=== PATIENT | female | born 1940 | race Caucasian/White ===

== ENCOUNTER 2018-06-08 17:05 | Inpatient (IN) | payer MEDICARE, OTHER ==
--- NOTE | 2018-06-08 19:14 | ED Physician Chart ---
ED Chief Complaint/HPI - Patient Information Date Seen:: 06/08/18 Time Seen:: 19:14 Chief Complaint:: Increased agitation History of Present Illness:: 78 yo female was brought from SNF to ER for evaluation of increased agitation for 2 days. Patient became extremely agitated and aggressive at ER. Allergies:: Allergies Allergy/AdvReac Type Severity Reaction Status Date / Time No Known Allergies Allergy Verified 06/08/18 17:28 Vitals:: Vital Signs - 8 hr 06/08/18 17:30 Temp 98.2 F HR 82 RR 16 BP 94/60 O2 Sat % 100 ED Review of Systems - Review of Systems General/Constitutional: No fever Skin: No skin lesions Head: No headache Eyes: No pain ENT: No nasal drainage Neck: No neck pain Cardio Vascular: No chest pain Pulmonary: No SOB GI: No nausea, No vomiting Musculoskeletal: No bone or joint pain Psychiatric: Prior psych history Neurological: No focal symptoms ED Past Medical History - Past Medical History Past Medical History: Dementia, Other (fibromyalgia, non-Hodgkin lymphoma, orthostatic hypotension, UTI) Social History: Non Smoker, No Alcohol, No Drug Use Psychiatricy History: Depression ED Physical Exam - Physical Examination General/Constitutional: Awake, Alert Head: Atraumatic Eyes: PERRL Skin: No skin lesions ENMT: Nasal exam nl Neck: No nuchal rigidity Respiratory: No Wheeze/Rhonchi/Rales Cardio Vascular: RRR, No murmur, gallop, rubs, NL S1 S2 GI: No tenderness/rebounding/guarding Extremities: normal strength in all extremities Neuro/Psych: No focal deficits ED Labs/Radiology/EKG Results - Lab Results Results: Laboratory Last Values WBC 10.3 Th/cmm (4.8-10.8) 06/08/18 19:35 RBC 3.76 Mil/cmm (3.80-5.20) L 06/08/18 19:35 Hgb 12.0 gm/dL (12-16) 06/08/18 19:35 Hct 35.4 % (41.0-60) L 06/08/18 19:35 MCV 94.1 fl (81-100) 06/08/18 19:35 MCH 31.9 pg (27.0-31.0) H 06/08/18 19:35 MCHC Differential 34.0 pg (28.0-36.0) 06/08/18 19:35 RDW 12.6 % (11.5-20.0) 06/08/18 19:35 Plt Count 140 Th/cmm (150-400) L 06/08/18 19:35 MPV 8.9 fl 06/08/18 19:35 Neutrophils % 41.4 % (40.0-80.0) 06/08/18 19:35 Lymphocytes % 50.5 % (20.0-50.0) H 06/08/18 19:35 Monocytes % 6.6 % (2.0-10.0) 06/08/18 19:35 Eosinophils % 0.8 % (0.0-5.0) 06/08/18 19:35 Basophils % 0.7 % (0.0-2.0) 06/08/18 19:35 Sodium 140 mEq/L (136-145) 06/08/18 19:35 Potassium 4.5 mEq/L (3.5-5.1) 06/08/18 19:35 Chloride 111 mEq/L (98-107) H 06/08/18 19:35 Carbon Dioxide 23.0 mEq/L (21.0-31.0) 06/08/18 19:35 Anion Gap 10.5 (7.0-16.0) 06/08/18 19:35 BUN 33 mg/dL (7-25) H 06/08/18 19:35 Creatinine 0.9 mg/dL (0.6-1.2) 06/08/18 19:35 Est GFR ( Amer) TNP 06/08/18 19:35 Est GFR (Non-Af Amer) TNP 06/08/18 19:35 BUN/Creatinine Ratio 36.7 06/08/18 19:35 Glucose 89 mg/dL (70-105) 06/08/18 19:35 Calcium 9.3 mg/dL (8.6-10.3) 06/08/18 19:35 Total Bilirubin 0.3 mg/dL (0.3-1.0) 06/08/18 19:35 AST 13 U/L (13-39) 06/08/18 19:35 ALT 11 U/L (7-52) 06/08/18 19:35 Alkaline Phosphatase 62 U/L (34-104) 06/08/18 19:35 Troponin I 0.01 ng/mL (0.01-0.05) 06/08/18 19:35 B-Natriuretic Peptide 82.1 pg/mL (5.0-100.0) 06/08/18 19:35 Total Protein 6.8 gm/dL (6.0-8.3) 06/08/18 19:35 Albumin 3.6 gm/dL (3.7-5.3) L 06/08/18 19:35 Globulin 3.2 gm/dL 06/08/18 19:35 Albumin/Globulin Ratio 1.1 (1.0-1.8) 06/08/18 19:35 TSH 2.68 uIU/ml (0.34-5.60) 06/08/18 19:35 - Radiology Results Results: CXR: no focal consolidation - EKG Interpretations EKG Time:: 19:35 Rate & Rhythm: 76 bpm, sinus rhythm Priddy: 240, -40 Intervals: SC 147, QRS 80 Comments:: Nonspecific ST elevation, lateral leads ED Assessment - Assessment General Assessment: Dementia Fibromyalgia History of Non-Hodgkin lymphoma Depression Psychosis Assessment/Comments:: CBC, CMP, Trop I, BNP, UA EKG, CXR Haldol 5mg IM Admit to [facility] for further evaluation and management ED Septic Shock - . Is Septic Shock (SBP<90, OR Lactate>4 mmol\L) present?: No - <6hrs of presentation: Vital Signs: Vital Signs - 8 hr 06/08/18 17:30 Temp 98.2 F HR 82 RR 16 BP 94/60 O2 Sat % 100 ED Reassessment (Disposition) - Reassessment Reassessment Condition:: Worsened - Patient Disposition Discharge/Transfer:: Acute Care w/in this hosp Admitting Medical Physician:: Patrice Partida Admitting Psych Physician:: Amy Sánchez
[2018-06-08 19:44] LABS: HEMATOCRIT 35.4 % (41.0-60); MEAN CELL VOLUME 94.1 fl (81-100); MEAN CORPUSCULAR HEMOGLOBIN 31.9 pg (27.0-31.0); MEAN PLATELET VOLUME 8.9 fl; PLATELET COUNT 140 Th/cmm (150-400); RED BLOOD COUNT 3.76 Mil/cmm (3.80-5.20); RED CELL DISTRIBUTION WIDTH 12.6 % (11.5-20.0); WHITE BLOOD COUNT 10.3 Th/cmm (4.8-10.8)
[2018-06-08 20:00] LABS: ALB/GLOB RATIO 1.1 (1.0-1.8); ALBUMIN 3.6 gm/dL (3.7-5.3); ALKALINE PHOSPHATASE 62 U/L (34-104); ANION GAP 10.5 (7.0-16.0); BILIRUBIN,TOTAL 0.3 mg/dL (0.3-1.0); BUN - UREA NITROGEN 33 mg/dL (7-25); CALCIUM SERUM 9.3 mg/dL (8.6-10.3); CHLORIDE 111 mEq/L (98-107); CREATININE - SERUM 0.9 mg/dL (0.6-1.2); GLUCOSE 89 mg/dL (70-105); POTASSIUM SERUM 4.5 mEq/L (3.5-5.1); SGOT 13 U/L (13-39); SGPT/ALT 11 U/L (7-52); SODIUM SERUM 140 mEq/L (136-145); TOTAL PROTEIN,SERUM 6.8 gm/dL (6.0-8.3)
[2018-06-08] MEDS ORDERED: Haloperidol Lactate 5 mg/mL 1mL Vial IM STA (20:52)
[2018-06-08] MEDS ORDERED: Haloperidol Lactate 5 mg/mL 1mL Vial ONE (21:01)
[2018-06-08 22:25] LABS: EOSINOPHIL 1 % (0-5); LYMPHOCYTE 52 % (20-50); NEUTROPHILS 47 % (40-80); PLATELET ESTIMATE ADEQUATE (NORMAL)
[2018-06-08] MEDS ORDERED: Maalox 30 mL Cup PO PRN (23:02)
[2018-06-08] MEDS ORDERED: Magnesium Hydroxide (MOM) 30 mL UDC PO PRN (23:02)
--- NOTE | 2018-06-09 08:26 | Diagnostic Imaging Report ---
CHEST X-RAY: AP view INDICATION: Shortness of breath COMPARISON: None FINDINGS: Chronic lung changes are seen with COPD changes. There is no focal consolidation or pleural effusions The heart is normal in size. Atherosclerosis is noted. Degenerative changes of the spine are noted. There is partially visualized probable nonunited left proximal humeral fracture. IMPRESSION: Chronic lung changes and COPD. No focal consolidation identified. Atherosclerotic vascular disease. Partially visualized probable nonunited left proximal humeral fracture. Consider dedicated left shoulder x-rays if indicated.
[2018-06-09] MEDS ORDERED: Multivitamin Tab PO SCH (09:00)
[2018-06-09] MEDS ORDERED: MEGESTROL ACETATE PO SCH (09:00)
--- NOTE | 2018-06-10 03:03 | Psychiatric Evaluation ---
DATE OF SERVICE: 06/08/2018 PSYCHIATRIC EVALUATION AND MENTAL STATUS EXAMINATION IDENTIFYING DATA: The patient is a 78-year-old woman, a resident of [facility]. Information was obtained by directly interviewing the patient as well as reviewing the admission papers and they are reliable. JUSTIFICATION OF HOSPITALIZATION: The patient is admitted here for increased agitation and aggressive behavior. CHIEF COMPLAINT: "I am counting, we need to do these numbers." HISTORY OF PRESENT ILLNESS: This is the first psychiatric hospitalization to [facility] for this patient, who is reported to have been very agitated and is not making any sense. The patient has been getting easily upset. During the interview, the patient is not making any sense and going on a tangent and is stating that she is counting the numbers. The patient's coping skills at this time are noted to be very poor. The patient's sleep and appetite are also noted to be very poor. The patient has been having difficult time to cope with the stress. The patient is reported to have been on multiple medications. The patient has been diagnosed and treated for depression in the past. PAST PSYCHIATRIC HISTORY: Details are not known. MEDICAL HISTORY: Physical examination is requested to be done by Dr. Partida. SUBSTANCE ABUSE HISTORY: None. PHYSICAL OR SEXUAL ABUSE HISTORY: None. LEGAL PROBLEMS: None at this time. STRENGTH AND ASSETS: The patient seems to be motivated. She has some family support, but the patient does not want to talk to anyone. MENTAL STATUS EXAMINATION: The patient is a 78-year-old thin built, superficially cooperative. Eye contact is poor. Mood is noted to be irritable. Affect is constricted. Coping skills are noted to be extremely poor. The patient is screaming and yelling. The patient has paranoia, but denies any command hallucinations. The patient's short-term memory is noted to be very poor and long-term memory is also noted to be very poor. Attention span and concentration are also noted to be limited. The patient's impulse control is noted to be poor. She is reported to have screaming and yelling prior to being hospitalized. DIAGNOSTIC IMPRESSION: AXIS IA: Psychotic disorder, not otherwise specified. AXIS IB.: Depressive disorder, not otherwise specified. AXIS II: None. AXIS III: As per Dr. Partida. IMMEDIATE TREATMENT PLAN: The patient is going to be observed on inpatient unit. Provided with supportive psychotherapy. The patient is going to be encouraged to participate in the groups and verbalize the concerns. Once stabilized, the patient is going to be discharged to self to be followed up on an outpatient basis. JOB# [id number]
[2018-06-10] MEDS: Multivitamin w/ Minerals Tab PO SCH (08:49)
[2018-06-10 11:58] LABS: CHOLESTEROL 172 mg/dL (<200); HDL -HIGH DENSITY LIPOPROTEIN 45 mg/dL (23-92); TRIGLYCERIDES 133 mg/dL (<150)
--- NOTE | 2018-06-10 13:29 | Progress Notes ---
DATE: 06/10/2018 SUBJECTIVE: Staff was spoken to. The patient is interviewed. Mood is noted to be irritable. Affect is constricted. The patient's insight and judgment at this time are noted to be impaired. Impulse control is noted to be poor. Coping skills are also noted to be poor. The patient has been going on a tangent and the patient is very confused and paranoid. The patient has no insight into her illness. The patient is isolative and withdrawn. ASSESSMENT: The patient is still grossly psychotic and impulsive. PLAN: To continue the patient with supportive therapy. I encouraged the patient to verbalize the concerns rather than to act out. The patient is not ready to be discharged to a lower level of care yet. delicatessen store manager has been spoken to and the patient is requested to have a family session. The patient is currently going to be placed on a low dose of the Seroquel at nighttime. There is 12.5 mg and the patient is going to be followed up with the supportive therapy. JOB# [id number]
--- NOTE | 2018-06-10 13:33 | History & Physical ---
ADMIT DATE: 06/08/2018 HISTORY OF PRESENT ILLNESS: A 78-year-old female patient. The patient is known to have history of dementia, history of fibromyalgia, history of non-Hodgkin's lymphoma in the past, history of recurrent urinary tract infection, history of osteoarthritis. The patient came to the Emergency Room because of increasing agitation for 2 days from [facility] and the patient was seen by Dr. Amador Rogel. The patient was admitted for acute psychosis. PAST MEDICAL HISTORY: As enumerated above, history of dementia, fibromyalgia, non-Hodgkin lymphoma, osteoarthritis, history of UTI in the past. SOCIAL HISTORY: No smoking. No drinking. No drug abuse. PSYCHIATRIC HISTORY: History of depression, psychosis. PHYSICAL EXAMINATION: GENERAL: The patient was awake, alert. HEENT: Normal. NECK: Supple, nontender. LUNGS: Clear. CARDIOVASCULAR SYSTEM: S1, S2 heard. ABDOMEN: Soft. CENTRAL NERVOUS SYSTEM: Grossly normal. LABORATORY DATA: I reviewed her lab reports. BUN is 33, creatinine 0.9 indicating some prerenal azotemia. Chest x-ray was normal. Her EKG showed a normal sinus rhythm, no acute changes. ASSESSMENT AND PLAN: 1. The patient was given Haldol in the Emergency Room. The patient was admitted to Geropsych Unit with a diagnosis of acute psychosis. 2. History of dementia, history of fibromyalgia, history of non-Hodgkin lymphoma, history of depression and also history of osteoarthritis. I will follow along with the further medical problems along with Dr. Sánchez. JOB# [id number]
[2018-06-11] MEDS: Multivitamin w/ Minerals Tab PO SCH (09:29)
--- NOTE | 2018-06-11 10:35 | Consultation ---
DATE OF CONSULTATION: 06/10/2018 REFERRING PHYSICIAN: Amy Sánchez M.D. TYPE OF CONSULTATION: Psychology. HISTORY OF PRESENT ILLNESS: The patient is a 78-year-old female. The patient is a resident of [facility]. The following is by record review and by patient's self-report. The patient is being admitted due to increased agitation as well as aggressive behavior. The patient presents as very confused and disoriented. The staff at the patient's facility reports she has been getting easily upset and agitated and not making any sense. Upon interview, the patient states that she is counting numbers, but did not explain the reason for this. The patient admits that she is feeling depressed. The patient denied any suicidal ideation or any wish to . PAST MEDICAL HISTORY: Please see history and physical by Dr. Partida. PAST PSYCHIATRIC HISTORY: Records are unavailable at the time of this clinical interview. SUBSTANCE ABUSE HISTORY: The patient did not answer this question. PSYCHOSOCIAL HISTORY: The patient did not answer questions about occupational or educational history or sikhism affiliation. The patient states that she has family who are supportive. The patient did not answer questions about marital status or if she has children. The patient is a resident of [facility]. The patient denied any history of physical or sexual abuse. The patient shook her head no as to any current legal problems. MENTAL STATUS EXAMINATION: The patient appears to be her stated age; however, she appears to be somewhat frail. Attitude is superficially cooperative. Eye contact is poor. Mood is irritable. Affect is constricted. Speech is slow. The patient's thought process shows to include loose associations and derailments. There are apparent cognitive deficits. This needs further evaluation. The patient denied any suicidal ideation, plan or intention. There is some evidence of paranoid ideation. The patient denied any auditory or visual hallucinations. The patient's behavior shows intermittent episodes of yelling. Impulse control is impaired. Concentration is poor. The patient did not participate in the memory assessment. The patient did not participate in the interpretation of proverbs. Insight is poor. Judgment is impaired. DIAGNOSTIC IMPRESSION: AXIS I: 1. Psychotic disorder, not otherwise specified. 2. Depressive disorder, not otherwise specified. AXIS II: Deferred. AXIS III: Per Dr. Partida. TREATMENT PLAN: The patient has been seen by Dr. Sánchez for psychiatric evaluation and for the management of the patient's psychotropic medications. We will provide supportive psychotherapy to include reality orientation, differentiation and integration. We will provide coping strategies for phase of life issues. We will provide motivational enhancement for the patient to become compliant and stay compliant with all aspects of her care and treatment. We will provide de-escalation as well as limit setting with respect to the patient's yelling episodes and verbal outbursts. We will encourage the patient to be able to demonstrate emotional and self-regulation prior to discharge. Thank you, Dr. Sánchez, for this consult and the opportunity to participate in this patient's care. JOB# [id number] LEANA
--- NOTE | 2018-06-12 02:00 | Progress Notes ---
DATE: 06/11/2018 PSYCHIATRIC PROGRESS NOTE SUBJECTIVE: Staff was spoken to. The patient is interviewed. Mood is noted to be irritable. Affect is constricted. Insight and judgment are noted to be still impaired. Impulse control is noted to be limited. The patient is very confused and going on a tangent. The patient has no insight. Short and long-term memory are noted to be very much impaired. The patient needs to be redirected most of the time. The patient is currently on low dose of Seroquel and has been able to tolerate the medication. ASSESSMENT: The patient is still impulsive and confused. PLAN: To continue the patient with the supportive therapy and followup. JOB# [id number]
[2018-06-12] MEDS: Multivitamin w/ Minerals Tab PO SCH (09:31)
--- NOTE | 2018-06-12 12:36 | Progress Notes ---
DATE: 06/12/2018 SUBJECTIVE: The patient was seen in her room. The patient is a poor historian due to medical condition. Per staff report, the patient ____ variable appetite and tends to refuse to eat. Otherwise, the patient appears to be in no acute distress. OBJECTIVE: VITAL SIGNS: Temperature 97.6, heart rate 96, blood pressure 98/49, respirations of 18, and 96% on room air. HEENT: Head is atraumatic and normocephalic. Eyes, bilateral conjunctivae are clear. Bilateral pupils are equally round and reactive. NECK: Supple. No JVD. CARDIOVASCULAR: S1 and S2, without murmur. PULMONARY: Clear to auscultation. GASTROINTESTINAL: Soft and nontender without guarding. Positive bowel sounds. MUSCULOSKELETAL: No clubbing. No cyanosis noted. ASSESSMENT: 1. Dementia. 2. Vitamin D deficiency. 3. Fibromyalgia. 4. History of non-Hodgkin's lymphoma. 5. Osteoarthritis. PLAN: We will keep the patient inpatient to Psychiatric Unit. We will follow up with a psychiatrist to monitor the patient's condition and behavior. Treatment plans were discussed with the patient's nurse. Treatment plans were discussed with Dr. Partida. JOB# [id number]
--- NOTE | 2018-06-12 22:39 | Progress Notes ---
DATE: 06/12/2018 PSYCHIATRIC PROGRESS NOTE SUBJECTIVE: Staff was spoken to. The patient is interviewed. Mood is noted to be irritable. Affect is constricted. Insight and judgment at this time are noted to be still impaired. Impulse control is noted to be poor. The patient is going on a tangent. The patient is alert and awake, but attention span and concentration are noted to be very poor. The patient's short and long-term memory are noted to be impaired. The patient has been getting very paranoid. ASSESSMENT: The patient is demented and psychotic. PLAN: To continue the patient with the Seroquel, Aricept and Namenda and follow the patient up. JOB# [id number]
[2018-06-13] MEDS: Multivitamin w/ Minerals Tab PO SCH (09:37)
--- NOTE | 2018-06-13 11:24 | General Progress Note ---
Subjective - Review of Systems Events since last encounter: patient irritable psychotic Objective - Results Result Diagrams: 06/08/18 19:35 06/08/18 19:35 Recent Labs: Laboratory Last Values WBC 10.3 Th/cmm (4.8-10.8) 06/08/18 19:35 RBC 3.76 Mil/cmm (3.80-5.20) L 06/08/18 19:35 Hgb 12.0 gm/dL (12-16) 06/08/18 19:35 Hct 35.4 % (41.0-60) L 06/08/18 19:35 MCV 94.1 fl (81-100) 06/08/18 19:35 MCH 31.9 pg (27.0-31.0) H 06/08/18 19:35 MCHC Differential 34.0 pg (28.0-36.0) 06/08/18 19:35 RDW 12.6 % (11.5-20.0) 06/08/18 19:35 Plt Count 140 Th/cmm (150-400) L 06/08/18 19:35 MPV 8.9 fl 06/08/18 19:35 Add Manual Diff YES 06/08/18 19:35 Neutrophils % RECOVERY ADVOCATE 06/08/18 19:35 Lymphocytes % RECOVERY ADVOCATE 06/08/18 19:35 Monocytes % RECOVERY ADVOCATE 06/08/18 19:35 Eosinophils % RECOVERY ADVOCATE 06/08/18 19:35 Basophils % RECOVERY ADVOCATE 06/08/18 19:35 Neutrophils (Manual) 47 % (40-80) 06/08/18 19:35 Lymphocytes 52 % (20-50) H 06/08/18 19:35 Eosinophils 1 % (0-5) 06/08/18 19:35 Platelet Estimate ADEQUATE (NORMAL) 06/08/18 19:35 Sodium 140 mEq/L (136-145) 06/08/18 19:35 Potassium 4.5 mEq/L (3.5-5.1) 06/08/18 19:35 Chloride 111 mEq/L (98-107) H 06/08/18 19:35 Carbon Dioxide 23.0 mEq/L (21.0-31.0) 06/08/18 19:35 Anion Gap 10.5 (7.0-16.0) 06/08/18 19:35 BUN 33 mg/dL (7-25) H 06/08/18 19:35 Creatinine 0.9 mg/dL (0.6-1.2) 06/08/18 19:35 Est GFR ( Amer) TNP 06/08/18 19:35 Est GFR (Non-Af Amer) TNP 06/08/18 19:35 BUN/Creatinine Ratio 36.7 06/08/18 19:35 Glucose 89 mg/dL (70-105) 06/08/18 19:35 Calcium 9.3 mg/dL (8.6-10.3) 06/08/18 19:35 Total Bilirubin 0.3 mg/dL (0.3-1.0) 06/08/18 19:35 AST 13 U/L (13-39) 06/08/18 19:35 ALT 11 U/L (7-52) 06/08/18 19:35 Alkaline Phosphatase 62 U/L (34-104) 06/08/18 19:35 Troponin I 0.01 ng/mL (0.01-0.05) 06/08/18 19:35 B-Natriuretic Peptide 82.1 pg/mL (5.0-100.0) 06/08/18 19:35 Total Protein 6.8 gm/dL (6.0-8.3) 06/08/18 19:35 Albumin 3.6 gm/dL (3.7-5.3) L 06/08/18 19:35 Globulin 3.2 gm/dL 06/08/18 19:35 Albumin/Globulin Ratio 1.1 (1.0-1.8) 06/08/18 19:35 Triglycerides 133 mg/dL (<150) 06/10/18 11:30 Cholesterol 172 mg/dL (<200) 06/10/18 11:30 LDL Cholesterol Direct 105 mg/dL (75-193) 06/10/18 11:30 HDL Cholesterol 45 mg/dL (23-92) 06/10/18 11:30 TSH 2.68 uIU/ml (0.34-5.60) 06/08/18 19:35 - Physical Exam Vitals and I&O: Vital Signs Temp 97.7 F 06/12/18 20:00 Pulse 72 06/12/18 20:00 Resp 18 06/12/18 20:00 BP 99/69 06/12/18 20:00 Pulse Ox 97 06/12/18 20:00 Intake & Output 06/12/18 06/13/18 06/13/18 18:59 06:59 18:59 Intake Total 1200 120 Output Total 500 Balance 1200 -380 Intake: Oral 1200 120 Output: Urine 500 Other: # Voids 3 2 # Bowel Movements 1 Active Medications: Current Medications Acetaminophen (Tylenol) 650 mg PO Q4HR PRN PRN Reason: Mild Pain / Temp above 100 Stop: 08/07/18 23:01 Al Hydrox/Mg Hydrox/Simethicone (Maalox) 30 ml PO Q4HR PRN PRN Reason: GI DISTRESS Stop: 08/07/18 23:01 Ascorbic Acid (Vitamin C) 500 mg PO DAILY [facility] Stop: 08/08/18 08:59 Last Admin: 06/13/18 09:37 Dose: 500 mg Cholecalciferol (Vitamin D3) 1,000 iu PO DAILY [facility] Stop: 08/08/18 08:59 Last Admin: 06/13/18 09:37 Dose: 1,000 iu Donepezil HCl (Aricept) 5 mg PO DAILY [facility] Stop: 08/12/18 08:59 Last Admin: 06/13/18 09:37 Dose: 5 mg Haloperidol (Haldol) 1 mg PO BID [facility]; Protocol Stop: 08/11/18 16:59 Magnesium Hydroxide (Milk Of Magnesia) 30 ml PO HS PRN PRN Reason: Constipation Megestrol Acetate (Megace) 400 mg PO BID [facility]; Protocol Stop: 08/08/18 08:59 Last Admin: 06/13/18 09:37 Dose: 400 mg Memantine (Namenda) 5 mg PO BID [facility] Stop: 08/11/18 16:59 Last Admin: 06/13/18 09:37 Dose: 5 mg Midodrine (Proamatine) 2.5 mg PO BID [facility] Stop: 08/08/18 08:59 Last Admin: 06/13/18 09:38 Dose: 2.5 mg Quetiapine Fumarate (Seroquel) 12.5 mg PO HS [facility]; Protocol Stop: 08/09/18 20:59 Last Admin: 06/12/18 20:36 Dose: 12.5 mg Zolpidem Tartrate (Ambien) 5 mg PO HS PRN PRN Reason: Insomnia Stop: 08/07/18 23:01 Last Admin: 06/12/18 20:36 Dose: 5 mg
--- NOTE | 2018-06-14 01:37 | Progress Notes ---
DATE: 06/13/2018 SUBJECTIVE: Staff was spoken to. The patient is interviewed. Mood is noted to be irritable. Affect is constricted. Coping skills are noted to be still poor. Insight and judgment are also noted to be very limited. Continues to be very paranoid and has been going on a tangent. No side effects to the medications are noted. The patient is currently on 12.5 mg of Seroquel, which is going to be gradually increased to 25 mg and the patient is going to be followed up with the supportive therapy. Please note that the patient is also placed on the Aricept and Namenda and the patient has been able to tolerate. ASSESSMENT: The patient is still psychotic and impulsive. PLAN: To continue the patient with the supportive therapy and followup. JOB# [id number]
[2018-06-14] MEDS: Multivitamin w/ Minerals Tab PO SCH (09:56)
--- NOTE | 2018-06-14 15:28 | General Progress Note ---
Subjective - Review of Systems Events since last encounter: patient still psychotic and impulsive Objective - Results Result Diagrams: 06/08/18 19:35 06/08/18 19:35 Recent Labs: Laboratory Last Values WBC 10.3 Th/cmm (4.8-10.8) 06/08/18 19:35 RBC 3.76 Mil/cmm (3.80-5.20) L 06/08/18 19:35 Hgb 12.0 gm/dL (12-16) 06/08/18 19:35 Hct 35.4 % (41.0-60) L 06/08/18 19:35 MCV 94.1 fl (81-100) 06/08/18 19:35 MCH 31.9 pg (27.0-31.0) H 06/08/18 19:35 MCHC Differential 34.0 pg (28.0-36.0) 06/08/18 19:35 RDW 12.6 % (11.5-20.0) 06/08/18 19:35 Plt Count 140 Th/cmm (150-400) L 06/08/18 19:35 MPV 8.9 fl 06/08/18 19:35 Add Manual Diff YES 06/08/18 19:35 Neutrophils % CHARTER COORDINATOR 06/08/18 19:35 Lymphocytes % CHARTER COORDINATOR 06/08/18 19:35 Monocytes % CHARTER COORDINATOR 06/08/18 19:35 Eosinophils % CHARTER COORDINATOR 06/08/18 19:35 Basophils % CHARTER COORDINATOR 06/08/18 19:35 Neutrophils (Manual) 47 % (40-80) 06/08/18 19:35 Lymphocytes 52 % (20-50) H 06/08/18 19:35 Eosinophils 1 % (0-5) 06/08/18 19:35 Platelet Estimate ADEQUATE (NORMAL) 06/08/18 19:35 Sodium 140 mEq/L (136-145) 06/08/18 19:35 Potassium 4.5 mEq/L (3.5-5.1) 06/08/18 19:35 Chloride 111 mEq/L (98-107) H 06/08/18 19:35 Carbon Dioxide 23.0 mEq/L (21.0-31.0) 06/08/18 19:35 Anion Gap 10.5 (7.0-16.0) 06/08/18 19:35 BUN 33 mg/dL (7-25) H 06/08/18 19:35 Creatinine 0.9 mg/dL (0.6-1.2) 06/08/18 19:35 Est GFR ( Amer) TNP 06/08/18 19:35 Est GFR (Non-Af Amer) TNP 06/08/18 19:35 BUN/Creatinine Ratio 36.7 06/08/18 19:35 Glucose 89 mg/dL (70-105) 06/08/18 19:35 Calcium 9.3 mg/dL (8.6-10.3) 06/08/18 19:35 Total Bilirubin 0.3 mg/dL (0.3-1.0) 06/08/18 19:35 AST 13 U/L (13-39) 06/08/18 19:35 ALT 11 U/L (7-52) 06/08/18 19:35 Alkaline Phosphatase 62 U/L (34-104) 06/08/18 19:35 Troponin I 0.01 ng/mL (0.01-0.05) 06/08/18 19:35 B-Natriuretic Peptide 82.1 pg/mL (5.0-100.0) 06/08/18 19:35 Total Protein 6.8 gm/dL (6.0-8.3) 06/08/18 19:35 Albumin 3.6 gm/dL (3.7-5.3) L 06/08/18 19:35 Globulin 3.2 gm/dL 06/08/18 19:35 Albumin/Globulin Ratio 1.1 (1.0-1.8) 06/08/18 19:35 Triglycerides 133 mg/dL (<150) 06/10/18 11:30 Cholesterol 172 mg/dL (<200) 06/10/18 11:30 LDL Cholesterol Direct 105 mg/dL (75-193) 06/10/18 11:30 HDL Cholesterol 45 mg/dL (23-92) 06/10/18 11:30 TSH 2.68 uIU/ml (0.34-5.60) 06/08/18 19:35 - Physical Exam Vitals and I&O: Vital Signs Temp 96.8 F 06/14/18 06:12 Pulse 90 06/14/18 06:12 Resp 19 06/14/18 06:12 BP 141/82 06/14/18 06:12 Pulse Ox 98 06/14/18 06:12 Intake & Output 06/13/18 06/14/18 06/14/18 18:59 06:59 18:59 Intake Total 680 180 Output Total 300 Balance 380 180 Intake: Oral 680 180 Output: Urine 300 Other: # Voids 1 # Bowel Movements 0 0 Active Medications: Current Medications Acetaminophen (Tylenol) 650 mg PO Q4HR PRN PRN Reason: Mild Pain / Temp above 100 Stop: 08/07/18 23:01 Al Hydrox/Mg Hydrox/Simethicone (Maalox) 30 ml PO Q4HR PRN PRN Reason: GI DISTRESS Stop: 08/07/18 23:01 Ascorbic Acid (Vitamin C) 500 mg PO DAILY [facility] Stop: 08/08/18 08:59 Last Admin: 06/14/18 09:55 Dose: Not Given Cholecalciferol (Vitamin D3) 1,000 iu PO DAILY [facility] Stop: 08/08/18 08:59 Last Admin: 06/14/18 09:55 Dose: Not Given Donepezil HCl (Aricept) 5 mg PO DAILY [facility] Stop: 08/12/18 08:59 Last Admin: 06/14/18 09:55 Dose: Not Given Haloperidol (Haldol) 1 mg PO BID [facility]; Protocol Stop: 08/11/18 16:59 Magnesium Hydroxide (Milk Of Magnesia) 30 ml PO HS PRN PRN Reason: Constipation Megestrol Acetate (Megace) 400 mg PO BID [facility]; Protocol Stop: 08/08/18 08:59 Last Admin: 06/14/18 09:55 Dose: Not Given Memantine (Namenda) 5 mg PO BID [facility] Stop: 08/11/18 16:59 Last Admin: 06/14/18 09:55 Dose: Not Given Midodrine (Proamatine) 2.5 mg PO BID [facility] Stop: 08/08/18 08:59 Last Admin: 06/14/18 09:55 Dose: Not Given Quetiapine Fumarate (Seroquel) 25 mg PO HS [facility]; Protocol Stop: 08/12/18 20:59 Last Admin: 06/13/18 21:19 Dose: 25 mg Zolpidem Tartrate (Ambien) 5 mg PO HS PRN PRN Reason: Insomnia Stop: 08/07/18 23:01 Last Admin: 06/12/18 20:36 Dose: 5 mg Assessment/Plan - Plan Plan: as per psych will monitor Nutritional Asmnt/Malnutr-PDOC - Dietary Evaluation Malnutrition Findings (Please click <Entered> for more info): Nutritional Asmnt/Malnutrition Start: 06/14/18 14: 16 Text: Status: Complete Freq: Protocol: Document 06/14/18 14:16 BRO (Rec: 06/14/18 14:21 BRO [email or web address]) Nutritional Asmnt/Malnutrition Patient General Information Nutritional Screening Low Risk Diagnosis psychosis Pertinent Medical Hx/Surgical Hx dementia, fibromyalgia, lymphoma, OA, UTI, depression, psychosis Subjective Information Pt seen sleeping at time of visit. Per EMR, PO intake 25- 75%. Current Diet Order/ Nutrition Support regular Pertinent Medications vit C, Vit D3, megace, seroquel Pertinent Labs 06/08 Cl 111, BUN 33, alb 3.6, glucose 89 Nutritional Hx/Data Height 1.65 m Height (Calculated Centimeters) 165.1 Current Weight (lbs) 52.163 kg Weight (Calculated Kilograms) 52.2 Weight (Calculated Grams) 04044.1 [place] Body Weight 125 Body Mass Index (BMI) 19.1 Weight Status Approriate GI Symptoms GI Symptoms None Last BM 06/12 Difficult in: None Skin Integrity/Comment: intact Current %PO Good (75-100%) Estimated Nutritional Goals BEE in Kcals: Using Current wt Calories/Kcals/Kg 25-30 Kcals Calculated 9728-1705 Protein: Using Current wt Protein g/k Protein Calculated 52 Fluid: ml 1300-1560ml (1ml/kcal) Nutritional Problem No current Nutrition Prob Problem N/A Intervention/Recommendation Comments 1. Continue with regular diet as ordered. 2. Monitor PO intake, wt, labs and skin integrity 3. F/U as low risk in 7 days, 06/21 Expected Outcomes/Goals Expected Outcomes/Goals 1. PO intake to meet at least 75% of nutritional needs. 2. Wt stability, skin to remain intact, labs to approach WNL.
--- NOTE | 2018-06-15 03:31 | Progress Notes ---
DATE: 06/14/2018 PSYCHIATRIC PROGRESS NOTE SUBJECTIVE: Staff was spoken to. The patient is interviewed. Mood is noted to be irritable. Affect is constricted. The patient is isolative and withdrawn. The patient has paranoia, but denies any command hallucinations. The patient has been placed on 25 mg of the Seroquel and has been able to tolerate the medications. No side effects to the medications are noted. The patient's coping skills are noted to be poor at this time. The patient has paranoia and the patient has been drowsy. Hence, it is decided to discontinue the haloperidol 1 mg b.i.d. and continue the Seroquel 25 mg at bedtime and will follow the patient with supportive therapy. Please note that the patient is still agitated and demented and is not ready to be discharged to a lower level of care. JOB# [id number]
[2018-06-15] MEDS: Multivitamin w/ Minerals Tab PO SCH (09:39)
--- NOTE | 2018-06-15 20:00 | Internal Medicine Prog Note ---
Internal Medicine Subjective - Subjective Service Date: 06/15/18 Patient seen and examined:: with staff Patient is:: awake, verbal, confused Per staff patient has:: tolerating meds Internal Medicine Objective - Results Result Diagrams: 06/08/18 19:35 06/08/18 19:35 Recent Labs: Laboratory Last Values WBC 10.3 Th/cmm (4.8-10.8) 06/08/18 19:35 RBC 3.76 Mil/cmm (3.80-5.20) L 06/08/18 19:35 Hgb 12.0 gm/dL (12-16) 06/08/18 19:35 Hct 35.4 % (41.0-60) L 06/08/18 19:35 MCV 94.1 fl (81-100) 06/08/18 19:35 MCH 31.9 pg (27.0-31.0) H 06/08/18 19:35 MCHC Differential 34.0 pg (28.0-36.0) 06/08/18 19:35 RDW 12.6 % (11.5-20.0) 06/08/18 19:35 Plt Count 140 Th/cmm (150-400) L 06/08/18 19:35 MPV 8.9 fl 06/08/18 19:35 Add Manual Diff YES 06/08/18 19:35 Neutrophils % PEDIATRIC SPEECH THERAPIST 06/08/18 19:35 Lymphocytes % PEDIATRIC SPEECH THERAPIST 06/08/18 19:35 Monocytes % PEDIATRIC SPEECH THERAPIST 06/08/18 19:35 Eosinophils % PEDIATRIC SPEECH THERAPIST 06/08/18 19:35 Basophils % PEDIATRIC SPEECH THERAPIST 06/08/18 19:35 Neutrophils (Manual) 47 % (40-80) 06/08/18 19:35 Lymphocytes 52 % (20-50) H 06/08/18 19:35 Eosinophils 1 % (0-5) 06/08/18 19:35 Platelet Estimate ADEQUATE (NORMAL) 06/08/18 19:35 Sodium 140 mEq/L (136-145) 06/08/18 19:35 Potassium 4.5 mEq/L (3.5-5.1) 06/08/18 19:35 Chloride 111 mEq/L (98-107) H 06/08/18 19:35 Carbon Dioxide 23.0 mEq/L (21.0-31.0) 06/08/18 19:35 Anion Gap 10.5 (7.0-16.0) 06/08/18 19:35 BUN 33 mg/dL (7-25) H 06/08/18 19:35 Creatinine 0.9 mg/dL (0.6-1.2) 06/08/18 19:35 Est GFR ( Amer) TNP 06/08/18 19:35 Est GFR (Non-Af Amer) TNP 06/08/18 19:35 BUN/Creatinine Ratio 36.7 06/08/18 19:35 Glucose 89 mg/dL (70-105) 06/08/18 19:35 Calcium 9.3 mg/dL (8.6-10.3) 06/08/18 19:35 Total Bilirubin 0.3 mg/dL (0.3-1.0) 06/08/18 19:35 AST 13 U/L (13-39) 06/08/18 19:35 ALT 11 U/L (7-52) 06/08/18 19:35 Alkaline Phosphatase 62 U/L (34-104) 06/08/18 19:35 Troponin I 0.01 ng/mL (0.01-0.05) 06/08/18 19:35 B-Natriuretic Peptide 82.1 pg/mL (5.0-100.0) 06/08/18 19:35 Total Protein 6.8 gm/dL (6.0-8.3) 06/08/18 19:35 Albumin 3.6 gm/dL (3.7-5.3) L 06/08/18 19:35 Globulin 3.2 gm/dL 06/08/18 19:35 Albumin/Globulin Ratio 1.1 (1.0-1.8) 06/08/18 19:35 Triglycerides 133 mg/dL (<150) 06/10/18 11:30 Cholesterol 172 mg/dL (<200) 06/10/18 11:30 LDL Cholesterol Direct 105 mg/dL (75-193) 06/10/18 11:30 HDL Cholesterol 45 mg/dL (23-92) 06/10/18 11:30 TSH 2.68 uIU/ml (0.34-5.60) 06/08/18 19:35 - Physical Exam Vitals and I&O: Vital Signs Temp 98.1 F 06/15/18 14:00 Pulse 96 06/15/18 14:00 Resp 20 06/15/18 14:00 BP 98/64 06/15/18 14:00 Pulse Ox 96 06/15/18 14:00 Intake & Output 06/15/18 06/15/18 06/16/18 06:59 18:59 06:59 Intake Total 240 1300 Output Total 250 900 Balance -10 400 Intake: Oral 240 1300 Output: Urine 250 900 Stool 0 Other: # Voids 3 # Bowel Movements 0 Active Medications: Current Medications Acetaminophen (Tylenol) 650 mg PO Q4HR PRN PRN Reason: Mild Pain / Temp above 100 Stop: 08/07/18 23:01 Al Hydrox/Mg Hydrox/Simethicone (Maalox) 30 ml PO Q4HR PRN PRN Reason: GI DISTRESS Stop: 08/07/18 23:01 Ascorbic Acid (Vitamin C) 500 mg PO DAILY [facility] Stop: 08/08/18 08:59 Last Admin: 06/15/18 09:39 Dose: Not Given Cholecalciferol (Vitamin D3) 1,000 iu PO DAILY [facility] Stop: 08/08/18 08:59 Last Admin: 06/15/18 09:39 Dose: Not Given Donepezil HCl (Aricept) 5 mg PO DAILY [facility] Stop: 08/12/18 08:59 Last Admin: 06/15/18 09:39 Dose: Not Given Magnesium Hydroxide (Milk Of Magnesia) 30 ml PO HS PRN PRN Reason: Constipation Megestrol Acetate (Megace) 400 mg PO BID [facility]; Protocol Stop: 08/08/18 08:59 Last Admin: 06/15/18 09:38 Dose: Not Given Memantine (Namenda) 5 mg PO BID [facility] Stop: 08/11/18 16:59 Last Admin: 06/15/18 09:38 Dose: Not Given Midodrine (Proamatine) 2.5 mg PO BID [facility] Stop: 08/08/18 08:59 Last Admin: 06/15/18 09:38 Dose: Not Given Quetiapine Fumarate (Seroquel) 25 mg PO HS [facility]; Protocol Stop: 08/12/18 20:59 Last Admin: 06/14/18 20:27 Dose: 25 mg Zolpidem Tartrate (Ambien) 5 mg PO HS PRN PRN Reason: Insomnia Stop: 08/07/18 23:01 Last Admin: 06/14/18 20:27 Dose: 5 mg General: alert HEENT: NC/AT, PERRLA Neck: Supple Lungs: CTAB Abdomen: soft, non-tender, non-distended, positive bowel sound Neurological: alert Internal Medicine Assmt/Plan - Assessment Assessment: dementia fibromyalgia hx of non hodgkins lymphoma vit d def. - Plan Plan: fall precautions continue current plan of care Nutritional Asmnt/Malnutr-PDOC - Dietary Evaluation Malnutrition Findings (Please click <Entered> for more info): Nutritional Asmnt/Malnutrition Start: 06/14/18 14: 16 Text: Status: Complete Freq: Protocol: Document 06/14/18 14:16 BRO (Rec: 06/14/18 14:21 BRO [email or web address]) Nutritional Asmnt/Malnutrition Patient General Information Nutritional Screening Low Risk Diagnosis psychosis Pertinent Medical Hx/Surgical Hx dementia, fibromyalgia, lymphoma, OA, UTI, depression, psychosis Subjective Information Pt seen sleeping at time of visit. Per EMR, PO intake 25- 75%. Current Diet Order/ Nutrition Support regular Pertinent Medications vit C, Vit D3, megace, seroquel Pertinent Labs 06/08 Cl 111, BUN 33, alb 3.6, glucose 89 Nutritional Hx/Data Height 5 ft 5 in Height (Calculated Centimeters) 165.1 Current Weight (lbs) 115 lb Weight (Calculated Kilograms) 52.2 Weight (Calculated Grams) 89012.1 [place] Body Weight 125 Body Mass Index (BMI) 19.1 Weight Status Approriate GI Symptoms GI Symptoms None Last BM 06/12 Difficult in: None Skin Integrity/Comment: intact Current %PO Good (75-100%) Estimated Nutritional Goals BEE in Kcals: Using Current wt Calories/Kcals/Kg 25-30 Kcals Calculated 5341-1391 Protein: Using Current wt Protein g/k Protein Calculated 52 Fluid: ml 1300-1560ml (1ml/kcal) Nutritional Problem No current Nutrition Prob Problem N/A Intervention/Recommendation Comments 1. Continue with regular diet as ordered. 2. Monitor PO intake, wt, labs and skin integrity 3. F/U as low risk in 7 days, 06/21 Expected Outcomes/Goals Expected Outcomes/Goals 1. PO intake to meet at least 75% of nutritional needs. 2. Wt stability, skin to remain intact, labs to approach WNL.
--- NOTE | 2018-06-15 23:56 | Progress Notes ---
DATE: 06/15/2018 SUBJECTIVE: Staff was spoken to. The patient is interviewed. Mood is noted to be less irritable. Affect is appropriate. The patient's insight and judgment are noted to be improving. Impulse control is noted to be fair. The patient is currently on 25 mg of the Seroquel and has been able to tolerate the medications. No side effects to the medications are noted. ASSESSMENT: The patient is stabilizing. PLAN: To continue the patient with supportive therapy and encourage the patient to verbalize the concerns rather than to act out. JOB# [id number]
[2018-06-16] MEDS: Multivitamin w/ Minerals Tab PO SCH (09:01)
--- NOTE | 2018-06-16 10:39 | Diagnostic Imaging Report ---
CT scan of the brain without intravenous contrast HISTORY: Headache, trauma Total DLP equals 674 CTDI equals 35.4 Axial sections were obtained from the base of the skull to the vertex. There is marked enlargement of the ventricular system size. Associated enlargement of cerebral sulci and subarachnoid cisterns. Findings are consistent with changes of generalized cerebral atrophy. No acute parenchymal abnormalities. No acute cerebral hemorrhage. Bilateral basal ganglia calcification noted. Extensive hypodensity is seen within the supratentorial white matter regions without mass effect. The findings may be associated with chronic small vessel ischemic disease. No extra-axial masses or abnormal fluid collections. Soft tissue swelling noted over the left frontal region of the skull. IMPRESSION: 1. No acute abnormalities 2. Severe cerebral atrophy 3. Extensive supratentorial white matter changes that may reflect chronic small vessel ischemic disease 4. Focal soft tissue swelling over the left frontal region of the skull.
--- NOTE | 2018-06-16 10:48 | Diagnostic Imaging Report ---
Left shoulder (3 views) HISTORY: Pain, trauma The exam demonstrates severe chronic deformity associated with an old humeral neck fracture. Upward displacement of the shaft with deformity of the proximal shaft and humeral head. IMPRESSION: 1. Severe chronic deformity associated with old displaced fracture of the left humeral neck.
--- NOTE | 2018-06-16 12:17 | General Progress Note ---
Subjective - Review of Systems Events since last encounter: awake but still confused Objective - Results Result Diagrams: 06/08/18 19:35 06/08/18 19:35 Recent Labs: Laboratory Last Values WBC 10.3 Th/cmm (4.8-10.8) 06/08/18 19:35 RBC 3.76 Mil/cmm (3.80-5.20) L 06/08/18 19:35 Hgb 12.0 gm/dL (12-16) 06/08/18 19:35 Hct 35.4 % (41.0-60) L 06/08/18 19:35 MCV 94.1 fl (81-100) 06/08/18 19:35 MCH 31.9 pg (27.0-31.0) H 06/08/18 19:35 MCHC Differential 34.0 pg (28.0-36.0) 06/08/18 19:35 RDW 12.6 % (11.5-20.0) 06/08/18 19:35 Plt Count 140 Th/cmm (150-400) L 06/08/18 19:35 MPV 8.9 fl 06/08/18 19:35 Add Manual Diff YES 06/08/18 19:35 Neutrophils % PHOTOENGRAVING PROOFER APPRENTICE 06/08/18 19:35 Lymphocytes % PHOTOENGRAVING PROOFER APPRENTICE 06/08/18 19:35 Monocytes % PHOTOENGRAVING PROOFER APPRENTICE 06/08/18 19:35 Eosinophils % PHOTOENGRAVING PROOFER APPRENTICE 06/08/18 19:35 Basophils % PHOTOENGRAVING PROOFER APPRENTICE 06/08/18 19:35 Neutrophils (Manual) 47 % (40-80) 06/08/18 19:35 Lymphocytes 52 % (20-50) H 06/08/18 19:35 Eosinophils 1 % (0-5) 06/08/18 19:35 Platelet Estimate ADEQUATE (NORMAL) 06/08/18 19:35 Sodium 140 mEq/L (136-145) 06/08/18 19:35 Potassium 4.5 mEq/L (3.5-5.1) 06/08/18 19:35 Chloride 111 mEq/L (98-107) H 06/08/18 19:35 Carbon Dioxide 23.0 mEq/L (21.0-31.0) 06/08/18 19:35 Anion Gap 10.5 (7.0-16.0) 06/08/18 19:35 BUN 33 mg/dL (7-25) H 06/08/18 19:35 Creatinine 0.9 mg/dL (0.6-1.2) 06/08/18 19:35 Est GFR ( Amer) TNP 06/08/18 19:35 Est GFR (Non-Af Amer) TNP 06/08/18 19:35 BUN/Creatinine Ratio 36.7 06/08/18 19:35 Glucose 89 mg/dL (70-105) 06/08/18 19:35 Calcium 9.3 mg/dL (8.6-10.3) 06/08/18 19:35 Total Bilirubin 0.3 mg/dL (0.3-1.0) 06/08/18 19:35 AST 13 U/L (13-39) 06/08/18 19:35 ALT 11 U/L (7-52) 06/08/18 19:35 Alkaline Phosphatase 62 U/L (34-104) 06/08/18 19:35 Troponin I 0.01 ng/mL (0.01-0.05) 06/08/18 19:35 B-Natriuretic Peptide 82.1 pg/mL (5.0-100.0) 06/08/18 19:35 Total Protein 6.8 gm/dL (6.0-8.3) 06/08/18 19:35 Albumin 3.6 gm/dL (3.7-5.3) L 06/08/18 19:35 Globulin 3.2 gm/dL 06/08/18 19:35 Albumin/Globulin Ratio 1.1 (1.0-1.8) 06/08/18 19:35 Triglycerides 133 mg/dL (<150) 06/10/18 11:30 Cholesterol 172 mg/dL (<200) 06/10/18 11:30 LDL Cholesterol Direct 105 mg/dL (75-193) 06/10/18 11:30 HDL Cholesterol 45 mg/dL (23-92) 06/10/18 11:30 TSH 2.68 uIU/ml (0.34-5.60) 06/08/18 19:35 - Physical Exam Vitals and I&O: Vital Signs Temp 98.6 F 06/16/18 06:17 Pulse 84 06/16/18 06:17 Resp 20 06/16/18 06:17 BP 120/65 06/16/18 06:17 Pulse Ox 98 06/16/18 06:17 Intake & Output 06/15/18 06/16/18 06/16/18 18:59 06:59 18:59 Intake Total 1300 240 Output Total 900 250 Balance 400 -10 Intake: Oral 1300 240 Output: Urine 900 250 Stool 0 Other: # Voids 3 # Bowel Movements 0 Active Medications: Current Medications Acetaminophen (Tylenol) 650 mg PO Q4HR PRN PRN Reason: Mild Pain / Temp above 100 Stop: 08/07/18 23:01 Al Hydrox/Mg Hydrox/Simethicone (Maalox) 30 ml PO Q4HR PRN PRN Reason: GI DISTRESS Stop: 08/07/18 23:01 Ascorbic Acid (Vitamin C) 500 mg PO DAILY [facility] Stop: 08/08/18 08:59 Last Admin: 06/16/18 09:00 Dose: Not Given Cholecalciferol (Vitamin D3) 1,000 iu PO DAILY [facility] Stop: 08/08/18 08:59 Last Admin: 06/16/18 09:00 Dose: Not Given Donepezil HCl (Aricept) 5 mg PO DAILY [facility] Stop: 08/12/18 08:59 Last Admin: 06/16/18 09:01 Dose: Not Given Magnesium Hydroxide (Milk Of Magnesia) 30 ml PO HS PRN PRN Reason: Constipation Megestrol Acetate (Megace) 400 mg PO BID [facility]; Protocol Stop: 08/08/18 08:59 Last Admin: 06/16/18 09:00 Dose: Not Given Memantine (Namenda) 5 mg PO BID [facility] Stop: 08/11/18 16:59 Last Admin: 06/16/18 09:00 Dose: Not Given Midodrine (Proamatine) 2.5 mg PO BID [facility] Stop: 08/08/18 08:59 Last Admin: 06/16/18 09:00 Dose: Not Given Quetiapine Fumarate (Seroquel) 25 mg PO HS [facility]; Protocol Stop: 08/12/18 20:59 Last Admin: 06/15/18 21:30 Dose: Not Given Zolpidem Tartrate (Ambien) 5 mg PO HS PRN PRN Reason: Insomnia Stop: 08/07/18 23:01 Last Admin: 06/14/18 20:27 Dose: 5 mg General: No acute distress HEENT: Atraumatic Neck: Supple Cardiovascular: Regular rate, Normal S1 Abdomen: Bowel sounds Assessment/Plan - Problem List Patient Problems: All Active Problems Dementia (Acute) F03.90 Fibromyalgia (Acute) Non-Hodgkins lymphoma (Acute) C85.90 Vitamin D deficiency (Acute) E55.9 - Plan Plan: as per psych will monitor Nutritional Asmnt/Malnutr-PDOC - Dietary Evaluation Malnutrition Findings (Please click <Entered> for more info): Nutritional Asmnt/Malnutrition Start: 06/14/18 14: 16 Text: Status: Complete Freq: Protocol: Document 06/14/18 14:16 LCHENG (Rec: 06/14/18 14:21 LCHENG [email or web address]) Nutritional Asmnt/Malnutrition Patient General Information Nutritional Screening Low Risk Diagnosis psychosis Pertinent Medical Hx/Surgical Hx dementia, fibromyalgia, lymphoma, OA, UTI, depression, psychosis Subjective Information Pt seen sleeping at time of visit. Per EMR, PO intake 25- 75%. Current Diet Order/ Nutrition Support regular Pertinent Medications vit C, Vit D3, megace, seroquel Pertinent Labs 06/08 Cl 111, BUN 33, alb 3.6, glucose 89 Nutritional Hx/Data Height 1.65 m Height (Calculated Centimeters) 165.1 Current Weight (lbs) 52.163 kg Weight (Calculated Kilograms) 52.2 Weight (Calculated Grams) 39987.1 [place] Body Weight 125 Body Mass Index (BMI) 19.1 Weight Status Approriate GI Symptoms GI Symptoms None Last BM 06/12 Difficult in: None Skin Integrity/Comment: intact Current %PO Good (75-100%) Estimated Nutritional Goals BEE in Kcals: Using Current wt Calories/Kcals/Kg 25-30 Kcals Calculated 3551-5748 Protein: Using Current wt Protein g/k Protein Calculated 52 Fluid: ml 1300-1560ml (1ml/kcal) Nutritional Problem No current Nutrition Prob Problem N/A Intervention/Recommendation Comments 1. Continue with regular diet as ordered. 2. Monitor PO intake, wt, labs and skin integrity 3. F/U as low risk in 7 days, 06/21 Expected Outcomes/Goals Expected Outcomes/Goals 1. PO intake to meet at least 75% of nutritional needs. 2. Wt stability, skin to remain intact, labs to approach WNL.
--- NOTE | 2018-06-17 06:55 | Progress Notes ---
DATE: 06/16/2018 PSYCHIATRIC PROGRESS NOTE SUBJECTIVE: Staff was spoken to. The patient is interviewed. Mood is noted to be anxious. Affect is appropriate. The patient is isolative and withdrawn. The patient is going on a tangent. The patient has paranoid delusions, but denies any commanding hallucinations. No side effects to the medications are noted. The patient is currently on Seroquel, she is getting 25 mg at bedtime and has been able to tolerate. The patient's short and long-term memory are noted to be very poor at this time. ASSESSMENT: The patient is still paranoid and impulsive. PLAN: To continue the patient with supportive therapy and follow up. JOB# [id number]
[2018-06-17] MEDS: Multivitamin w/ Minerals Tab PO SCH (09:26)
--- NOTE | 2018-06-17 10:03 | General Progress Note ---
Subjective - Review of Systems Events since last encounter: patient still paranoid impulsive Objective - Results Result Diagrams: 06/08/18 19:35 06/08/18 19:35 Recent Labs: Laboratory Last Values WBC 10.3 Th/cmm (4.8-10.8) 06/08/18 19:35 RBC 3.76 Mil/cmm (3.80-5.20) L 06/08/18 19:35 Hgb 12.0 gm/dL (12-16) 06/08/18 19:35 Hct 35.4 % (41.0-60) L 06/08/18 19:35 MCV 94.1 fl (81-100) 06/08/18 19:35 MCH 31.9 pg (27.0-31.0) H 06/08/18 19:35 MCHC Differential 34.0 pg (28.0-36.0) 06/08/18 19:35 RDW 12.6 % (11.5-20.0) 06/08/18 19:35 Plt Count 140 Th/cmm (150-400) L 06/08/18 19:35 MPV 8.9 fl 06/08/18 19:35 Add Manual Diff YES 06/08/18 19:35 Neutrophils % OIL AND GAS LEASE PUMPER 06/08/18 19:35 Lymphocytes % OIL AND G[employer] LEASE PUMPER 06/08/18 19:35 Monocytes % OIL AND G[employer] LEASE PUMPER 06/08/18 19:35 Eosinophils % OIL AND G[employer] LEASE PUMPER 06/08/18 19:35 Basophils % OIL AND G[employer] LEASE PUMPER 06/08/18 19:35 Neutrophils (Manual) 47 % (40-80) 06/08/18 19:35 Lymphocytes 52 % (20-50) H 06/08/18 19:35 Eosinophils 1 % (0-5) 06/08/18 19:35 Platelet Estimate ADEQUATE (NORMAL) 06/08/18 19:35 Sodium 140 mEq/L (136-145) 06/08/18 19:35 Potassium 4.5 mEq/L (3.5-5.1) 06/08/18 19:35 Chloride 111 mEq/L (98-107) H 06/08/18 19:35 Carbon Dioxide 23.0 mEq/L (21.0-31.0) 06/08/18 19:35 Anion Gap 10.5 (7.0-16.0) 06/08/18 19:35 BUN 33 mg/dL (7-25) H 06/08/18 19:35 Creatinine 0.9 mg/dL (0.6-1.2) 06/08/18 19:35 Est GFR ( Amer) TNP 06/08/18 19:35 Est GFR (Non-Af Amer) TNP 06/08/18 19:35 BUN/Creatinine Ratio 36.7 06/08/18 19:35 Glucose 89 mg/dL (70-105) 06/08/18 19:35 Calcium 9.3 mg/dL (8.6-10.3) 06/08/18 19:35 Total Bilirubin 0.3 mg/dL (0.3-1.0) 06/08/18 19:35 AST 13 U/L (13-39) 06/08/18 19:35 ALT 11 U/L (7-52) 06/08/18 19:35 Alkaline Phosphatase 62 U/L (34-104) 06/08/18 19:35 Troponin I 0.01 ng/mL (0.01-0.05) 06/08/18 19:35 B-Natriuretic Peptide 82.1 pg/mL (5.0-100.0) 06/08/18 19:35 Total Protein 6.8 gm/dL (6.0-8.3) 06/08/18 19:35 Albumin 3.6 gm/dL (3.7-5.3) L 06/08/18 19:35 Globulin 3.2 gm/dL 06/08/18 19:35 Albumin/Globulin Ratio 1.1 (1.0-1.8) 06/08/18 19:35 Triglycerides 133 mg/dL (<150) 06/10/18 11:30 Cholesterol 172 mg/dL (<200) 06/10/18 11:30 LDL Cholesterol Direct 105 mg/dL (75-193) 06/10/18 11:30 HDL Cholesterol 45 mg/dL (23-92) 06/10/18 11:30 TSH 2.68 uIU/ml (0.34-5.60) 06/08/18 19:35 - Physical Exam Vitals and I&O: Vital Signs Temp 96.8 F 06/17/18 06:13 Pulse 90 06/17/18 06:13 Resp 20 06/17/18 06:13 BP 124/75 06/17/18 06:13 Pulse Ox 99 06/17/18 06:13 Intake & Output 06/16/18 06/17/18 06/17/18 18:59 06:59 18:59 Intake Total 960 120 Balance 960 120 Intake: Oral 960 120 Other: # Voids 3 3 # Bowel Movements 1 0 Active Medications: Current Medications Acetaminophen (Tylenol) 650 mg PO Q4HR PRN PRN Reason: Mild Pain / Temp above 100 Stop: 08/07/18 23:01 Al Hydrox/Mg Hydrox/Simethicone (Maalox) 30 ml PO Q4HR PRN PRN Reason: GI DISTRESS Stop: 08/07/18 23:01 Ascorbic Acid (Vitamin C) 500 mg PO DAILY [facility] Stop: 08/08/18 08:59 Last Admin: 06/17/18 09:26 Dose: Not Given Cholecalciferol (Vitamin D3) 1,000 iu PO DAILY [facility] Stop: 08/08/18 08:59 Last Admin: 06/17/18 09:26 Dose: Not Given Magnesium Hydroxide (Milk Of Magnesia) 30 ml PO HS PRN PRN Reason: Constipation Megestrol Acetate (Megace) 400 mg PO BID [facility]; Protocol Stop: 08/08/18 08:59 Last Admin: 06/17/18 09:26 Dose: Not Given Midodrine (Proamatine) 2.5 mg PO BID [facility] Stop: 08/08/18 08:59 Last Admin: 06/17/18 09:26 Dose: Not Given Quetiapine Fumarate (Seroquel) 25 mg PO HS [facility]; Protocol Stop: 08/12/18 20:59 Last Admin: 06/16/18 21:22 Dose: Not Given Zolpidem Tartrate (Ambien) 5 mg PO HS PRN PRN Reason: Insomnia Stop: 08/07/18 23:01 Last Admin: 06/14/18 20:27 Dose: 5 mg General: No acute distress HEENT: Atraumatic Neck: Supple Cardiovascular: Regular rate, Normal S1 Abdomen: Bowel sounds Assessment/Plan - Problem List Patient Problems: All Active Problems Dementia (Acute) F03.90 Fibromyalgia (Acute) Non-Hodgkins lymphoma (Acute) C85.90 Vitamin D deficiency (Acute) E55.9 - Plan Plan: as per psych will monitor Nutritional Asmnt/Malnutr-PDOC - Dietary Evaluation Malnutrition Findings (Please click <Entered> for more info): Nutritional Asmnt/Malnutrition Start: 06/14/18 14: 16 Text: Status: Complete Freq: Protocol: Document 06/14/18 14:16 BRO (Rec: 06/14/18 14:21 [email or web address] [email or web address]) Nutritional Asmnt/Malnutrition Patient General Information Nutritional Screening Low Risk Diagnosis psychosis Pertinent Medical Hx/Surgical Hx dementia, fibromyalgia, lymphoma, OA, UTI, depression, psychosis Subjective Information Pt seen sleeping at time of visit. Per EMR, PO intake 25- 75%. Current Diet Order/ Nutrition Support regular Pertinent Medications vit C, Vit D3, megace, seroquel Pertinent Labs 06/08 Cl 111, BUN 33, alb 3.6, glucose 89 Nutritional Hx/Data Height 1.65 m Height (Calculated Centimeters) 165.1 Current Weight (lbs) 52.163 kg Weight (Calculated Kilograms) 52.2 Weight (Calculated Grams) 63101.1 [place] Body Weight 125 Body Mass Index (BMI) 19.1 Weight Status Approriate GI Symptoms GI Symptoms None Last BM 06/12 Difficult in: None Skin Integrity/Comment: intact Current %PO Good (75-100%) Estimated Nutritional Goals BEE in Kcals: Using Current wt Calories/Kcals/Kg 25-30 Kcals Calculated 3936-7295 Protein: Using Current wt Protein g/k Protein Calculated 52 Fluid: ml 1300-1560ml (1ml/kcal) Nutritional Problem No current Nutrition Prob Problem N/A Intervention/Recommendation Comments 1. Continue with regular diet as ordered. 2. Monitor PO intake, wt, labs and skin integrity 3. F/U as low risk in 7 days, 06/21 Expected Outcomes/Goals Expected Outcomes/Goals 1. PO intake to meet at least 75% of nutritional needs. 2. Wt stability, skin to remain intact, labs to approach WNL.
--- NOTE | 2018-06-17 15:29 | Progress Notes ---
DATE: 06/17/2018 SUBJECTIVE: Staff was spoken to. The patient is interviewed. Mood is noted to be irritable. Affect is constricted. Coping skills are noted to be still poor. The patient is very tearful and crying this morning stating that she did not get any visitors last night. The patient's [id number] and son have been spoken to last night, [id number] is the one stating that they do not want her to be on any other medications except for the Seroquel because the patient has all the blood work and extensive workup done for the dementia and they do not find the Aricept or Namenda of any help and hence they do not want those medications and hence it is decided to discontinue the Aricept and Namenda and continue the patient on the Seroquel and followup. JOB# [id number]
[2018-06-18] MEDS: Multivitamin w/ Minerals Tab PO SCH (10:13)
--- NOTE | 2018-06-18 21:15 | Internal Medicine Prog Note ---
Internal Medicine Subjective - Subjective Service Date: 06/18/18 Patient is:: awake, verbal, confused Per staff patient has:: tolerating meds Internal Medicine Objective - Results Result Diagrams: 06/08/18 19:35 06/08/18 19:35 Recent Labs: Laboratory Last Values WBC 10.3 Th/cmm (4.8-10.8) 06/08/18 19:35 RBC 3.76 Mil/cmm (3.80-5.20) L 06/08/18 19:35 Hgb 12.0 gm/dL (12-16) 06/08/18 19:35 Hct 35.4 % (41.0-60) L 06/08/18 19:35 MCV 94.1 fl (81-100) 06/08/18 19:35 MCH 31.9 pg (27.0-31.0) H 06/08/18 19:35 MCHC Differential 34.0 pg (28.0-36.0) 06/08/18 19:35 RDW 12.6 % (11.5-20.0) 06/08/18 19:35 Plt Count 140 Th/cmm (150-400) L 06/08/18 19:35 MPV 8.9 fl 06/08/18 19:35 Add Manual Diff YES 06/08/18 19:35 Neutrophils % DECORATING AND ASSEMBLY SUPERVISOR 06/08/18 19:35 Lymphocytes % DECORATING AND ASSEMBLY SUPERVISOR 06/08/18 19:35 Monocytes % DECORATING AND ASSEMBLY SUPERVISOR 06/08/18 19:35 Eosinophils % DECORATING AND ASSEMBLY SUPERVISOR 06/08/18 19:35 Basophils % DECORATING AND ASSEMBLY SUPERVISOR 06/08/18 19:35 Neutrophils (Manual) 47 % (40-80) 06/08/18 19:35 Lymphocytes 52 % (20-50) H 06/08/18 19:35 Eosinophils 1 % (0-5) 06/08/18 19:35 Platelet Estimate ADEQUATE (NORMAL) 06/08/18 19:35 Sodium 140 mEq/L (136-145) 06/08/18 19:35 Potassium 4.5 mEq/L (3.5-5.1) 06/08/18 19:35 Chloride 111 mEq/L (98-107) H 06/08/18 19:35 Carbon Dioxide 23.0 mEq/L (21.0-31.0) 06/08/18 19:35 Anion Gap 10.5 (7.0-16.0) 06/08/18 19:35 BUN 33 mg/dL (7-25) H 06/08/18 19:35 Creatinine 0.9 mg/dL (0.6-1.2) 06/08/18 19:35 Est GFR ( Amer) TNP 06/08/18 19:35 Est GFR (Non-Af Amer) TNP 06/08/18 19:35 BUN/Creatinine Ratio 36.7 06/08/18 19:35 Glucose 89 mg/dL (70-105) 06/08/18 19:35 POC Glucose 505 MG/DL (70 - 105) H* 06/17/18 20:00 Calcium 9.3 mg/dL (8.6-10.3) 06/08/18 19:35 Total Bilirubin 0.3 mg/dL (0.3-1.0) 06/08/18 19:35 AST 13 U/L (13-39) 06/08/18 19:35 ALT 11 U/L (7-52) 06/08/18 19:35 Alkaline Phosphatase 62 U/L (34-104) 06/08/18 19:35 Troponin I 0.01 ng/mL (0.01-0.05) 06/08/18 19:35 B-Natriuretic Peptide 82.1 pg/mL (5.0-100.0) 06/08/18 19:35 Total Protein 6.8 gm/dL (6.0-8.3) 06/08/18 19:35 Albumin 3.6 gm/dL (3.7-5.3) L 06/08/18 19:35 Globulin 3.2 gm/dL 06/08/18 19:35 Albumin/Globulin Ratio 1.1 (1.0-1.8) 06/08/18 19:35 Triglycerides 133 mg/dL (<150) 06/10/18 11:30 Cholesterol 172 mg/dL (<200) 06/10/18 11:30 LDL Cholesterol Direct 105 mg/dL (75-193) 06/10/18 11:30 HDL Cholesterol 45 mg/dL (23-92) 06/10/18 11:30 TSH 2.68 uIU/ml (0.34-5.60) 06/08/18 19:35 - Physical Exam Vitals and I&O: Vital Signs Temp 97.4 F 06/18/18 20:42 Pulse 112 06/18/18 20:42 Resp 18 06/18/18 20:42 BP 99/62 06/18/18 20:42 Pulse Ox 100 06/18/18 20:42 Intake & Output 06/18/18 06/18/18 06/19/18 06:59 18:59 06:59 Intake Total 1200 240 Balance 1200 240 Intake: Oral 1200 240 Other: # Voids 2 Active Medications: Current Medications Acetaminophen (Tylenol) 650 mg PO Q4HR PRN PRN Reason: Mild Pain / Temp above 100 Stop: 08/07/18 23:01 Al Hydrox/Mg Hydrox/Simethicone (Maalox) 30 ml PO Q4HR PRN PRN Reason: GI DISTRESS Stop: 08/07/18 23:01 Ascorbic Acid (Vitamin C) 500 mg PO DAILY [facility] Stop: 08/08/18 08:59 Last Admin: 06/18/18 10:13 Dose: 500 mg Cholecalciferol (Vitamin D3) 1,000 iu PO DAILY [facility] Stop: 08/08/18 08:59 Last Admin: 06/18/18 10:14 Dose: 1,000 iu Magnesium Hydroxide (Milk Of Magnesia) 30 ml PO HS PRN PRN Reason: Constipation Megestrol Acetate (Megace) 400 mg PO BID [facility]; Protocol Stop: 08/08/18 08:59 Last Admin: 06/18/18 17:04 Dose: 400 mg Midodrine (Proamatine) 2.5 mg PO BID [facility] Stop: 08/08/18 08:59 Last Admin: 06/18/18 17:04 Dose: 2.5 mg Quetiapine Fumarate (Seroquel) 25 mg PO HS [facility]; Protocol Stop: 08/12/18 20:59 Last Admin: 06/18/18 21:14 Dose: 25 mg Zolpidem Tartrate (Ambien) 5 mg PO HS PRN PRN Reason: Insomnia Stop: 08/07/18 23:01 Last Admin: 06/18/18 21:14 Dose: 5 mg General: alert HEENT: NC/AT, PERRLA Neck: Supple Lungs: CTAB Abdomen: soft, non-tender, non-distended, positive bowel sound Neurological: alert Internal Medicine Assmt/Plan - Assessment Assessment: dementia fibromyalgia hx of non hodgkins lymphoma vit d def. - Plan Plan: fall precautions continue current plan of care Nutritional Asmnt/Malnutr-PDOC - Dietary Evaluation Malnutrition Findings (Please click <Entered> for more info): Nutritional Asmnt/Malnutrition Start: 06/14/18 14: 16 Text: Status: Complete Freq: Protocol: Document 06/14/18 14:16 KIKEG (Rec: 06/14/18 14:21 LCCHELSEAG [email or web address]) Nutritional Asmnt/Malnutrition Patient General Information Nutritional Screening Low Risk Diagnosis psychosis Pertinent Medical Hx/Surgical Hx dementia, fibromyalgia, lymphoma, OA, UTI, depression, psychosis Subjective Information Pt seen sleeping at time of visit. Per EMR, PO intake 25- 75%. Current Diet Order/ Nutrition Support regular Pertinent Medications vit C, Vit D3, megace, seroquel Pertinent Labs 06/08 Cl 111, BUN 33, alb 3.6, glucose 89 Nutritional Hx/Data Height 5 ft 5 in Height (Calculated Centimeters) 165.1 Current Weight (lbs) 115 lb Weight (Calculated Kilograms) 52.2 Weight (Calculated Grams) 26197.1 [place] Body Weight 125 Body Mass Index (BMI) 19.1 Weight Status Approriate GI Symptoms GI Symptoms None Last BM 06/12 Difficult in: None Skin Integrity/Comment: intact Current %PO Good (75-100%) Estimated Nutritional Goals BEE in Kcals: Using Current wt Calories/Kcals/Kg 25-30 Kcals Calculated 5568-9961 Protein: Using Current wt Protein g/k Protein Calculated 52 Fluid: ml 1300-1560ml (1ml/kcal) Nutritional Problem No current Nutrition Prob Problem N/A Intervention/Recommendation Comments 1. Continue with regular diet as ordered. 2. Monitor PO intake, wt, labs and skin integrity 3. F/U as low risk in 7 days, 06/21 Expected Outcomes/Goals Expected Outcomes/Goals 1. PO intake to meet at least 75% of nutritional needs. 2. Wt stability, skin to remain intact, labs to approach WNL.
--- NOTE | 2018-06-19 02:54 | Progress Notes ---
DATE: 06/18/2018 PSYCHIATRIC PROGRESS NOTE SUBJECTIVE: Staff was spoken to. The patient is interviewed. Mood is noted to be irritable. Affect is constricted. The patient is tearful and crying and is stating that she misses her family and no one is coming to visit her. The patient has been able to tolerate the medication. The patient is currently on Seroquel. No side effects to the medications are noted. ASSESSMENT: The patient is still demented and paranoid. PLAN: To continue the patient with supportive therapy and follow up. [facility]# [id number]
--- NOTE | 2018-06-19 08:45 | Progress Notes ---
DATE: 06/19/2018 SUBJECTIVE: The patient was seen in her room. The patient is asleep, but easily arousable. The patient is a poor historian due to current medical condition. According to staff report, the patient still has some episodes of paranoia and agitation, easily gets frustrated. Otherwise, the patient appears to be in no acute distress. OBJECTIVE: VITAL SIGNS: Temperature 97.4, heart rate of 92, blood pressure 99/62, respirations of 18, and 100% on room air. HEENT: Head is atraumatic and normocephalic. Eyes: Bilateral conjunctivae are clear. Bilateral pupils are equally round and reactive. NECK: Supple. No JVD. CARDIOVASCULAR: S1 and S2, without murmur. PULMONARY: Clear to auscultation. GASTROINTESTINAL: Soft and nontender without guarding. Positive bowel sounds. MUSCULOSKELETAL: No clubbing. No cyanosis noted. ASSESSMENT: 1. Dementia. 2. Osteoarthritis. 3. Vitamin D deficiency. 4. Fibromyalgia. 5. History of non-Hodgkin lymphoma. PLAN: We will continue to keep the patient inpatient to Psychiatric Unit. We will follow up with a psychiatrist to monitor the patient's condition and behavior. Treatment plans were discussed with the patient's nurse. Treatment plans were discussed with Dr. Partida. JOB# [id number]
[2018-06-19] MEDS: Multivitamin w/ Minerals Tab PO SCH (10:38)
--- NOTE | 2018-06-19 13:14 | Progress Notes ---
DATE: 06/19/2018 SUBJECTIVE: Staff was spoken to. The patient is interviewed. Mood is noted to be irritable. Affect is constricted. Insight and judgment at this time are noted to be still impaired. Impulse control is noted to be poor. Coping skills are also noted to be very poor. No major behavioral problems are noted, but the patient has been presenting with acute mood swings and paranoia and she wants what she wants and the patient is very hard to be redirected at times. The patient has dementia and there is no change in her cognitive abilities. ASSESSMENT: The patient is still impulsive. PLAN: To continue the patient with the current medications and followup. JOB# [id number]
[2018-06-20] MEDS: Multivitamin w/ Minerals Tab PO SCH (08:40)
--- NOTE | 2018-06-20 12:24 | General Progress Note ---
Subjective - Review of Systems Events since last encounter: patient is paranoid confused Objective - Results Result Diagrams: 06/08/18 19:35 06/08/18 19:35 Recent Labs: Laboratory Last Values WBC 10.3 Th/cmm (4.8-10.8) 06/08/18 19:35 RBC 3.76 Mil/cmm (3.80-5.20) L 06/08/18 19:35 Hgb 12.0 gm/dL (12-16) 06/08/18 19:35 Hct 35.4 % (41.0-60) L 06/08/18 19:35 MCV 94.1 fl (81-100) 06/08/18 19:35 MCH 31.9 pg (27.0-31.0) H 06/08/18 19:35 MCHC Differential 34.0 pg (28.0-36.0) 06/08/18 19:35 RDW 12.6 % (11.5-20.0) 06/08/18 19:35 Plt Count 140 Th/cmm (150-400) L 06/08/18 19:35 MPV 8.9 fl 06/08/18 19:35 Add Manual Diff YES 06/08/18 19:35 Neutrophils % FIELD SERVICE TECHNICIAN 06/08/18 19:35 Lymphocytes % FIELD SERVICE TECHNICIAN 06/08/18 19:35 Monocytes % FIELD SERVICE TECHNICIAN 06/08/18 19:35 Eosinophils % FIELD SERVICE TECHNICIAN 06/08/18 19:35 Basophils % FIELD SERVICE TECHNICIAN 06/08/18 19:35 Neutrophils (Manual) 47 % (40-80) 06/08/18 19:35 Lymphocytes 52 % (20-50) H 06/08/18 19:35 Eosinophils 1 % (0-5) 06/08/18 19:35 Platelet Estimate ADEQUATE (NORMAL) 06/08/18 19:35 Sodium 140 mEq/L (136-145) 06/08/18 19:35 Potassium 4.5 mEq/L (3.5-5.1) 06/08/18 19:35 Chloride 111 mEq/L (98-107) H 06/08/18 19:35 Carbon Dioxide 23.0 mEq/L (21.0-31.0) 06/08/18 19:35 Anion Gap 10.5 (7.0-16.0) 06/08/18 19:35 BUN 33 mg/dL (7-25) H 06/08/18 19:35 Creatinine 0.9 mg/dL (0.6-1.2) 06/08/18 19:35 Est GFR ( Amer) TNP 06/08/18 19:35 Est GFR (Non-Af Amer) TNP 06/08/18 19:35 BUN/Creatinine Ratio 36.7 06/08/18 19:35 Glucose 89 mg/dL (70-105) 06/08/18 19:35 POC Glucose 505 MG/DL (70 - 105) H* 06/17/18 20:00 Calcium 9.3 mg/dL (8.6-10.3) 06/08/18 19:35 Total Bilirubin 0.3 mg/dL (0.3-1.0) 06/08/18 19:35 AST 13 U/L (13-39) 06/08/18 19:35 ALT 11 U/L (7-52) 06/08/18 19:35 Alkaline Phosphatase 62 U/L (34-104) 06/08/18 19:35 Troponin I 0.01 ng/mL (0.01-0.05) 06/08/18 19:35 B-Natriuretic Peptide 82.1 pg/mL (5.0-100.0) 06/08/18 19:35 Total Protein 6.8 gm/dL (6.0-8.3) 06/08/18 19:35 Albumin 3.6 gm/dL (3.7-5.3) L 06/08/18 19:35 Globulin 3.2 gm/dL 06/08/18 19:35 Albumin/Globulin Ratio 1.1 (1.0-1.8) 06/08/18 19:35 Triglycerides 133 mg/dL (<150) 06/10/18 11:30 Cholesterol 172 mg/dL (<200) 06/10/18 11:30 LDL Cholesterol Direct 105 mg/dL (75-193) 06/10/18 11:30 HDL Cholesterol 45 mg/dL (23-92) 06/10/18 11:30 TSH 2.68 uIU/ml (0.34-5.60) 06/08/18 19:35 - Physical Exam Vitals and I&O: Vital Signs Temp 97.1 F 06/20/18 06:32 Pulse 78 06/20/18 06:32 Resp 18 06/20/18 06:32 BP 145/81 06/20/18 06:32 Pulse Ox 98 06/20/18 06:32 Intake & Output 06/19/18 06/20/18 06/20/18 18:59 06:59 18:59 Intake Total 800 240 Output Total 1 Balance 800 239 Intake: Oral 800 240 Output: Urine/Stool Mix 1 Other: # Voids 1 Active Medications: Current Medications Acetaminophen (Tylenol) 650 mg PO Q4HR PRN PRN Reason: Mild Pain / Temp above 100 Stop: 08/07/18 23:01 Al Hydrox/Mg Hydrox/Simethicone (Maalox) 30 ml PO Q4HR PRN PRN Reason: GI DISTRESS Stop: 08/07/18 23:01 Ascorbic Acid (Vitamin C) 500 mg PO DAILY [facility] Stop: 08/08/18 08:59 Last Admin: 06/20/18 08:40 Dose: 500 mg Cholecalciferol (Vitamin D3) 1,000 iu PO DAILY [facility] Stop: 08/08/18 08:59 Last Admin: 06/20/18 08:40 Dose: 1,000 iu Magnesium Hydroxide (Milk Of Magnesia) 30 ml PO HS PRN PRN Reason: Constipation Megestrol Acetate (Megace) 400 mg PO BID [facility]; Protocol Stop: 08/08/18 08:59 Last Admin: 06/20/18 08:40 Dose: 400 mg Midodrine (Proamatine) 2.5 mg PO BID [facility] Stop: 08/08/18 08:59 Last Admin: 06/20/18 08:42 Dose: 2.5 mg Quetiapine Fumarate (Seroquel) 25 mg PO HS [facility]; Protocol Stop: 08/12/18 20:59 Last Admin: 06/19/18 20:36 Dose: 25 mg Zolpidem Tartrate (Ambien) 5 mg PO HS PRN PRN Reason: Insomnia Stop: 08/07/18 23:01 Last Admin: 06/19/18 20:37 Dose: 5 mg General: No acute distress HEENT: Atraumatic Neck: Supple Cardiovascular: Regular rate, Normal S1 Abdomen: Bowel sounds Assessment/Plan - Problem List Patient Problems: All Active Problems Dementia (Acute) F03.90 Fibromyalgia (Acute) Non-Hodgkins lymphoma (Acute) C85.90 Vitamin D deficiency (Acute) E55.9 - Plan Plan: as per psych will monitor Nutritional Asmnt/Malnutr-PDOC - Dietary Evaluation Malnutrition Findings (Please click <Entered> for more info): Nutritional Asmnt/Malnutrition Start: 06/14/18 14: 16 Text: Status: Complete Freq: Protocol: Document 06/14/18 14:16 BRO (Rec: 06/14/18 14:21 BRO [email or web address]) Nutritional Asmnt/Malnutrition Patient General Information Nutritional Screening Low Risk Diagnosis psychosis Pertinent Medical Hx/Surgical Hx dementia, fibromyalgia, lymphoma, OA, UTI, depression, psychosis Subjective Information Pt seen sleeping at time of visit. Per EMR, PO intake 25- 75%. Current Diet Order/ Nutrition Support regular Pertinent Medications vit C, Vit D3, megace, seroquel Pertinent Labs 06/08 Cl 111, BUN 33, alb 3.6, glucose 89 Nutritional Hx/Data Height 1.65 m Height (Calculated Centimeters) 165.1 Current Weight (lbs) 52.163 kg Weight (Calculated Kilograms) 52.2 Weight (Calculated Grams) 28956.1 [place] Body Weight 125 Body Mass Index (BMI) 19.1 Weight Status Approriate GI Symptoms GI Symptoms None Last BM 06/12 Difficult in: None Skin Integrity/Comment: intact Current %PO Good (75-100%) Estimated Nutritional Goals BEE in Kcals: Using Current wt Calories/Kcals/Kg 25-30 Kcals Calculated 0315-1137 Protein: Using Current wt Protein g/k Protein Calculated 52 Fluid: ml 1300-1560ml (1ml/kcal) Nutritional Problem No current Nutrition Prob Problem N/A Intervention/Recommendation Comments 1. Continue with regular diet as ordered. 2. Monitor PO intake, wt, labs and skin integrity 3. F/U as low risk in 7 days, 06/21 Expected Outcomes/Goals Expected Outcomes/Goals 1. PO intake to meet at least 75% of nutritional needs. 2. Wt stability, skin to remain intact, labs to approach WNL.
--- NOTE | 2018-06-21 02:34 | Progress Notes ---
DATE: 06/20/2018 SUBJECTIVE: Staff was spoken to. The patient is interviewed. Mood is noted to be irritable. Affect is constricted. Coping skills at this time are noted to be still impaired. No side effects to the medications are noted. The patient has been having difficult time to cope with the stress, continues to be selectively been accepting the medications. The patient has still both short-term as well as long-term memory deficits. Impulse control seems to be improving at this time. ASSESSMENT: The patient is still paranoid and demented. PLAN: To continue the patient with the Seroquel on followup. JOB# [id number]
[2018-06-21] MEDS: Multivitamin w/ Minerals Tab PO SCH (08:39)
--- NOTE | 2018-06-21 16:00 | General Progress Note ---
Subjective - Review of Systems Events since last encounter: patient paranoid demented no signs of pain Objective - Results Result Diagrams: 06/08/18 19:35 06/08/18 19:35 Recent Labs: Laboratory Last Values WBC 10.3 Th/cmm (4.8-10.8) 06/08/18 19:35 RBC 3.76 Mil/cmm (3.80-5.20) L 06/08/18 19:35 Hgb 12.0 gm/dL (12-16) 06/08/18 19:35 Hct 35.4 % (41.0-60) L 06/08/18 19:35 MCV 94.1 fl (81-100) 06/08/18 19:35 MCH 31.9 pg (27.0-31.0) H 06/08/18 19:35 MCHC Differential 34.0 pg (28.0-36.0) 06/08/18 19:35 RDW 12.6 % (11.5-20.0) 06/08/18 19:35 Plt Count 140 Th/cmm (150-400) L 06/08/18 19:35 MPV 8.9 fl 06/08/18 19:35 Add Manual Diff YES 06/08/18 19:35 Neutrophils % [employer]OR 06/08/18 19:35 Lymphocytes % G[employer] INSPECTOR 06/08/18 19:35 Monocytes % G[employer] M[employer] INSPECTOR 06/08/18 19:35 Eosinophils % G[employer] M[employer] INSPECTOR 06/08/18 19:35 Basophils % G[employer] M[employer] INSPECTOR 06/08/18 19:35 Neutrophils (Manual) 47 % (40-80) 06/08/18 19:35 Lymphocytes 52 % (20-50) H 06/08/18 19:35 Eosinophils 1 % (0-5) 06/08/18 19:35 Platelet Estimate ADEQUATE (NORMAL) 06/08/18 19:35 Sodium 140 mEq/L (136-145) 06/08/18 19:35 Potassium 4.5 mEq/L (3.5-5.1) 06/08/18 19:35 Chloride 111 mEq/L (98-107) H 06/08/18 19:35 Carbon Dioxide 23.0 mEq/L (21.0-31.0) 06/08/18 19:35 Anion Gap 10.5 (7.0-16.0) 06/08/18 19:35 BUN 33 mg/dL (7-25) H 06/08/18 19:35 Creatinine 0.9 mg/dL (0.6-1.2) 06/08/18 19:35 Est GFR ( Amer) TNP 06/08/18 19:35 Est GFR (Non-Af Amer) TNP 06/08/18 19:35 BUN/Creatinine Ratio 36.7 06/08/18 19:35 Glucose 89 mg/dL (70-105) 06/08/18 19:35 POC Glucose 505 MG/DL (70 - 105) H* 06/17/18 20:00 Calcium 9.3 mg/dL (8.6-10.3) 06/08/18 19:35 Total Bilirubin 0.3 mg/dL (0.3-1.0) 06/08/18 19:35 AST 13 U/L (13-39) 06/08/18 19:35 ALT 11 U/L (7-52) 06/08/18 19:35 Alkaline Phosphatase 62 U/L (34-104) 06/08/18 19:35 Troponin I 0.01 ng/mL (0.01-0.05) 06/08/18 19:35 B-Natriuretic Peptide 82.1 pg/mL (5.0-100.0) 06/08/18 19:35 Total Protein 6.8 gm/dL (6.0-8.3) 06/08/18 19:35 Albumin 3.6 gm/dL (3.7-5.3) L 06/08/18 19:35 Globulin 3.2 gm/dL 06/08/18 19:35 Albumin/Globulin Ratio 1.1 (1.0-1.8) 06/08/18 19:35 Triglycerides 133 mg/dL (<150) 06/10/18 11:30 Cholesterol 172 mg/dL (<200) 06/10/18 11:30 LDL Cholesterol Direct 105 mg/dL (75-193) 06/10/18 11:30 HDL Cholesterol 45 mg/dL (23-92) 06/10/18 11:30 TSH 2.68 uIU/ml (0.34-5.60) 06/08/18 19:35 - Physical Exam Vitals and I&O: Vital Signs Temp 0 F 09/17/18 06:15 Pulse 102 06/20/18 20:14 Resp 18 06/20/18 20:14 BP 92/60 06/20/18 20:14 Pulse Ox 98 06/20/18 20:14 Intake & Output 06/20/18 06/21/18 06/21/18 18:59 06:59 18:59 Intake Total 800 240 Output Total 750 200 Balance 50 40 Intake: Oral 800 240 Output: Urine 750 200 Other: # Voids 0 # Bowel Movements 0 0 Active Medications: Current Medications Acetaminophen (Tylenol) 650 mg PO Q4HR PRN PRN Reason: Mild Pain / Temp above 100 Stop: 08/07/18 23:01 Al Hydrox/Mg Hydrox/Simethicone (Maalox) 30 ml PO Q4HR PRN PRN Reason: GI DISTRESS Stop: 08/07/18 23:01 Ascorbic Acid (Vitamin C) 500 mg PO DAILY [facility] Stop: 08/08/18 08:59 Last Admin: 06/21/18 08:39 Dose: 500 mg Cholecalciferol (Vitamin D3) 1,000 iu PO DAILY ENOC Stop: 08/08/18 08:59 Last Admin: 06/21/18 08:39 Dose: 1,000 iu Magnesium Hydroxide (Milk Of Magnesia) 30 ml PO HS PRN PRN Reason: Constipation Megestrol Acetate (Megace) 400 mg PO BID [facility]; Protocol Stop: 08/08/18 08:59 Midodrine (Proamatine) 2.5 mg PO BID ENOC Stop: 08/08/18 08:59 Last Admin: 06/21/18 08:39 Dose: 2.5 mg Quetiapine Fumarate (Seroquel) 25 mg PO HS ENOC; Protocol Stop: 08/12/18 20:59 Last Admin: 06/20/18 20:22 Dose: 25 mg Zolpidem Tartrate (Ambien) 5 mg PO HS PRN PRN Reason: Insomnia Stop: 08/07/18 23:01 Last Admin: 06/19/18 20:37 Dose: 5 mg General: No acute distress HEENT: Atraumatic Neck: Supple Cardiovascular: Regular rate, Normal S1 Abdomen: Bowel sounds Assessment/Plan - Problem List Patient Problems: All Active Problems Dementia (Acute) F03.90 Fibromyalgia (Acute) Non-Hodgkins lymphoma (Acute) C85.90 Vitamin D deficiency (Acute) E55.9 - Plan Plan: as per psych will monitor Nutritional Asmnt/Malnutr-PDOC - Dietary Evaluation Malnutrition Findings (Please click <Entered> for more info): Nutritional Asmnt/Malnutrition Start: 06/14/18 14: 16 Text: Status: Complete Freq: Protocol: Document 06/14/18 14:16 BRO (Rec: 06/14/18 14:21 CHELSEAG [email or web address]) Nutritional Asmnt/Malnutrition Patient General Information Nutritional Screening Low Risk Diagnosis psychosis Pertinent Medical Hx/Surgical Hx dementia, fibromyalgia, lymphoma, OA, UTI, depression, psychosis Subjective Information Pt seen sleeping at time of visit. Per EMR, PO intake 25- 75%. Current Diet Order/ Nutrition Support regular Pertinent Medications vit C, Vit D3, megace, seroquel Pertinent Labs 06/08 Cl 111, BUN 33, alb 3.6, glucose 89 Nutritional Hx/Data Height 1.65 m Height (Calculated Centimeters) 165.1 Current Weight (lbs) 52.163 kg Weight (Calculated Kilograms) 52.2 Weight (Calculated Grams) 53449.1 [place] Body Weight 125 Body Mass Index (BMI) 19.1 Weight Status Approriate GI Symptoms GI Symptoms None Last BM 06/12 Difficult in: None Skin Integrity/Comment: intact Current %PO Good (75-100%) Estimated Nutritional Goals BEE in Kcals: Using Current wt Calories/Kcals/Kg 25-30 Kcals Calculated 4207-8272 Protein: Using Current wt Protein g/k Protein Calculated 52 Fluid: ml 1300-1560ml (1ml/kcal) Nutritional Problem No current Nutrition Prob Problem N/A Intervention/Recommendation Comments 1. Continue with regular diet as ordered. 2. Monitor PO intake, wt, labs and skin integrity 3. F/U as low risk in 7 days, 06/21 Expected Outcomes/Goals Expected Outcomes/Goals 1. PO intake to meet at least 75% of nutritional needs. 2. Wt stability, skin to remain intact, labs to approach WNL.
--- NOTE | 2018-06-21 17:55 | Progress Notes ---
DATE: 06/21/2018 SUBJECTIVE: Staff was spoken to. The patient is interviewed. Mood is noted to be less irritable. Affect is appropriate. Not suicidal or homicidal today. Coping skills are noted to be improving. No major behavioral problems are noted. The patient, however, continues to be dysphoric and demented. ASSESSMENT: The patient is still depressed. PLAN: To continue the patient with the supportive therapy, encouraged the patient to verbalize the concerns rather than to act out and then discharge the patient back to the care home facility. JOB# [id number]
--- NOTE | 2018-06-29 09:36 | Discharge Summary ---
DATE OF DISCHARGE: 06/21/2018 IDENTIFYING DATA: The patient is a 78-year-old woman, resident of [facility]. Information obtained directly interviewing the patient as well as reviewing the admission papers and they are reliable. JUSTIFICATION OF HOSPITALIZATION: The patient is admitted for aggression and agitated behavior. CHIEF COMPLAINT: "I am counting, we need to do these numbers." DIAGNOSES AT THE TIME OF ADMISSION: AXIS I: Psychotic disorder, not otherwise specified. B.: Depressive disorder, not otherwise specified. AXIS II: None. AXIS III: As per Dr. Partida. HISTORY OF PRESENT ILLNESS: Please refer to the 06/09/2018 dictation done by me. Physical examination was done by Dr. Partida and is noted to be not significant for any major medical issues. HOSPITAL COURSE AND RESPONSE TO TREATMENT: The patient has been observed on inpatient unit, provided with supportive psychotherapy. The patient's family has been very adamant and not giving any other medications, except low dose of the Seroquel. The patient has been given 25 mg of Seroquel and has been closely monitored on the unit and the patient has been finally discharged with recommendation that she is going to be seeking treatment on an outpatient basis. MENTAL STATUS EXAMINATION: At the time of discharge, the patient's mood is noted to be anxious. Affect is appropriate. Not suicidal or homicidal. Insight and judgment are improving. Impulse control seems to be fair. No major side effects at the time of the discharge are noted. Condition at the time of discharge is noted to be stable. DIAGNOSES AT THE TIME OF DISCHARGE: AXIS I: Psychotic disorder, not otherwise specified. B. Dementia and behavioral change, secondary trait. AFTERCARE PLAN: [facility]. JOB# [id number]
== END 2018-06-21 16:25 | DRG 885 ==
LOC: ER 17:05 → GERO 20:56
PROVIDERS: ADMIT Psychiatry & Neurology Psychiatry; ATTEND Psychiatry & Neurology Psychiatry
DX: F23 Brief psychotic disorder (principal); C85.90 Non-Hodgkin lymphoma, unspecified, unspecified site; F03.90 Unspecified dementia, unspecified severity, without behavioral disturbance, psychotic disturbance, mood disturbance, and anxiety; M79.7 Fibromyalgia; F32.9 Major depressive disorder, single episode, unspecified; M19.90 Unspecified osteoarthritis, unspecified site; E55.9 Vitamin D deficiency, unspecified
CPT/HCPCS: 36415-UA; 70450-TC; 71045-TC; 73030-TC-LT; 80053-TC; 80061-TC; 82948-90; 83036-90; 83880-TC; 84443-TC; 84484-TC; 85007-TC; 85025-TC; 93005; 97530; G0410; J1630; X3904; Z7610

== ENCOUNTER 2018-06-24 23:08 | Inpatient (IN) | payer MEDICARE, OTHER ==
--- NOTE | 2018-06-24 23:31 | ED Physician Chart ---
ED Chief Complaint/HPI - Patient Information Date Seen:: 06/24/18 Time Seen:: 23:15 Chief Complaint:: head trauma History of Present Illness:: This evening the patient was apparently getting out of her wheelchair and she tripped on her Han catheter falling forward striking her forehead. Patient stated she is fallen about 4 times the last 3 days. However patient is confused. She states the year is 1919. Patient was admitted to [facility] health department of this hospital on 06/08/2019. Allergies:: Allergies Allergy/AdvReac Type Severity Reaction Status Date / Time No Known Allergies Allergy Verified 06/08/18 17:28 Vitals:: Vital Signs - 8 hr 06/24/18 23:10 Temp 97.6 F HR 86 RR 18 BP 126/71 O2 Sat % 99 Historian:: Patient, EMS Review:: Transfer documents Reviewed ED Review of Systems - Review of Systems General/Constitutional: No fever, No chills Skin: No skin lesions Head: Other (head trauma) Eyes: No pain, No diplopia ED Past Medical History - Past Medical History Past Medical History: Arthritis, Dementia, Other (myalgia; non-Hodgkin's lymphoma; status post UTI) Family History: Other (unavailable) Social History: Care Facility Surgical History: other (available) Psychiatricy History: Dementia Family Medical History - Family Member Mother History Unknown: Yes Ethnicity: Unknown Living Status: Unknown ED Physical Exam - Physical Examination General/Constitutional: Well-developed, well-nourished, Alert, No distress Other Gen/Cons comments:: Patient is confused Other Head comments:: 1 cm right forehead abrasion Skin: Nl inspection, No rash ENMT: External ears, nose nl, Lips, teeth, gums nl Neck: No nuchal rigidity Other Neck comments:: Patient noted to move her neck freely Respiratory: Clear to Auscultation Cardio Vascular: RRR, No murmur, gallop, rubs GI: No tenderness/rebounding/guarding Extremities: Normal digits & nails Neuro/Psych: No focal deficits Misc: No paraspinal tenderness ED Labs/Radiology/EKG Results - Lab Results Results: Laboratory Results - last 24 hr 06/24/18 06/24/18 23:25 23:25 WBC 11.7 H RBC 3.83 Hgb 11.9 L Hct 36.0 L MCV 93.8 MCH 31.2 H MCHC Differential 33.2 RDW 12.6 Plt Count 139 L MPV 8.6 Neutrophils % 54.9 Lymphocytes % 38.4 Monocytes % 4.7 Eosinophils % 1.0 Basophils % 1.0 Sodium 138 Potassium 5.1 Chloride 112 H Carbon Dioxide 15.6 L Anion Gap 15.5 BUN 38 H Creatinine 1.0 Est GFR ( Amer) TNP Est GFR (Non-Af Amer) TNP BUN/Creatinine Ratio 38.0 Glucose 99 Calcium 9.6 - Radiology Results Results: CT head showed chronic changes only; no bleed, mass effect or edema ED Septic Shock - . Is Septic Shock (SBP<90, OR Lactate>4 mmol\L) present?: No - <6hrs of presentation: Vital Signs: Vital Signs - 8 hr 06/24/18 23:10 Temp 97.6 F HR 86 RR 18 BP 126/71 O2 Sat % 99 ED Reassessment (Disposition) - Reassessment Reassessment Condition:: Unchanged - Diagnosis Diagnosis:: Blunt head trauma; dehydration; dementia; fibromyalgia - Patient Disposition Admitted to:: Med/Surg Spoke to:: Patrice Partida Admitting Medical Physician:: Patrice Partida Condition at Disposition:: Stable, Unchanged
[2018-06-24 23:37] LABS: % LYMPHOCYTES 38.4 % (20.0-50.0); % MONOCYTES 4.7 % (2.0-10.0); % NEUTROPHILS 54.9 % (40.0-80.0); BASOPHILE ABSOLUTE 0.1 Th/cumm (0-0.2); EOSINOPHILE ABSOLUTE 0.1 Th/cmm (0.1-0.4); HEMOGLOBIN 11.9 gm/dL (12-16); LYMPHOCYTE ABSOLUTE 4.5 Th/cmm (1.5-3.0); MEAN CELL VOLUME 93.8 fl (81-100); MEAN CORPUSCULAR HEMOGLOBIN 31.2 pg (27.0-31.0); MEAN CORPUSCULAR HGB CONC 33.2 pg (28.0-36.0); MEAN PLATELET VOLUME 8.6 fl; MONOCYTE ABSOLUTE 0.5 Th/cmm (0.3-1.0); NEUTROPHILE ABSOLUTE 6.5 Th/cmm (1.8-8.0); PLATELET COUNT 139 Th/cmm (150-400); RED BLOOD COUNT 3.83 Mil/cmm (3.80-5.20); RED CELL DISTRIBUTION WIDTH 12.6 % (11.5-20.0); WHITE BLOOD COUNT 11.7 Th/cmm (4.8-10.8)
[2018-06-24 23:52] LABS: ANION GAP 15.5 (7.0-16.0); BUN - UREA NITROGEN 38 mg/dL (7-25); CALCIUM SERUM 9.6 mg/dL (8.6-10.3); CARBON DIOXIDE 15.6 mEq/L (21.0-31.0); CHLORIDE 112 mEq/L (98-107); GLUCOSE 99 mg/dL (70-105); POTASSIUM SERUM 5.1 mEq/L (3.5-5.1)
[2018-06-24 23:56] LABS: SODIUM SERUM 138 mEq/L (136-145)
[2018-06-25] MEDS ORDERED: Sodium Chloride 0.9% 1,000 ML IV ONE (00:05)
[2018-06-25 05:04] VITALS: BP 130/73
[2018-06-25] MEDS: D5-0.45NS 1,000 ML IV SCH ×2 (05:11→17:29)
--- NOTE | 2018-06-25 08:44 | Diagnostic Imaging Report ---
CT scan of the brain without intravenous contrast HISTORY: Trauma Total DLP equals 741 CTDI equals 39.2 Axial sections were obtained from the base of the skull to the vertex. There is prominence/enlargement of the ventricular system size. Associated enlargement of cerebral sulci and subarachnoid cisterns. Findings are consistent with changes of generalized cerebral atrophy. No acute parenchymal abnormalities. No acute cerebral hemorrhage. Hypodensity is seen within the supratentorial white matter regions without mass effect. The findings may be associated with chronic small vessel ischemic disease. No extra-axial masses or abnormal fluid collections. IMPRESSION: 1. No acute abnormalities 2. Cerebral atrophy 3. Supratentorial white matter changes that may reflect chronic small vessel ischemic disease
[2018-06-25] MEDS ORDERED: VTE Chemical Prophylaxis Screen/Admission MC PRN (09:47)
[2018-06-25 11:46] LABS: % BASOPHILS 0.9 % (0.0-2.0); % EOSINOPHILS 1.5 % (0.0-5.0); % LYMPHOCYTES 43.1 % (20.0-50.0); % MONOCYTES 5.6 % (2.0-10.0); % NEUTROPHILS 48.9 % (40.0-80.0); BASOPHILE ABSOLUTE 0.1 Th/cumm (0-0.2); EOSINOPHILE ABSOLUTE 0.1 Th/cmm (0.1-0.4); HEMATOCRIT 31.4 % (41.0-60); HEMOGLOBIN 10.9 gm/dL (12-16); LYMPHOCYTE ABSOLUTE 4.1 Th/cmm (1.5-3.0); MEAN CELL VOLUME 93.7 fl (81-100); MEAN CORPUSCULAR HEMOGLOBIN 32.5 pg (27.0-31.0); MEAN CORPUSCULAR HGB CONC 34.7 pg (28.0-36.0); MEAN PLATELET VOLUME 8.1 fl; MONOCYTE ABSOLUTE 0.5 Th/cmm (0.3-1.0); NEUTROPHILE ABSOLUTE 4.7 Th/cmm (1.8-8.0); PLATELET COUNT 144 Th/cmm (150-400); RED BLOOD COUNT 3.35 Mil/cmm (3.80-5.20); RED CELL DISTRIBUTION WIDTH 12.2 % (11.5-20.0); WHITE BLOOD COUNT 9.5 Th/cmm (4.8-10.8)
[2018-06-25 12:04] LABS: ALB/GLOB RATIO 1.1 (1.0-1.8); ALBUMIN 3.2 gm/dL (3.7-5.3); ALKALINE PHOSPHATASE 49 U/L (34-104); ANION GAP 9.6 (7.0-16.0); BILIRUBIN,TOTAL 0.5 mg/dL (0.3-1.0); BUN - UREA NITROGEN 26 mg/dL (7-25); CHLORIDE 111 mEq/L (98-107); CREATININE - SERUM 0.8 mg/dL (0.6-1.2); GLUCOSE 112 mg/dL (70-105); POTASSIUM SERUM 3.6 mEq/L (3.5-5.1); SGOT 15 U/L (13-39); SGPT/ALT 11 U/L (7-52); SODIUM SERUM 138 mEq/L (136-145)
[2018-06-25] MEDS ORDERED: Maalox 30 mL Cup PO PRN (12:59)
[2018-06-25] MEDS ORDERED: Magnesium Hydroxide (MOM) 30 mL UDC PO PRN (12:59)
[2018-06-25] MEDS ORDERED: Non-Formulary Item 1 EA (Melatonin [Melatonin] 6 MG) PO PRN (12:59)
--- NOTE | 2018-06-25 13:30 | Consultation ---
Consult Note - Consult Note Service Date: 06/25/18 Referring Physician: Patrice Partida Consult Note: PHYSICIAN Consultation Note: Date of Admission: 06/25/18 Purpose of Consultation: Leukocytosis. Chief Complaint: Patient CHRISTOPHER MILLER was admitted to location Medical/Surgical Unit I with DEHYDRATION,BLUNT HEAD TRAUMA S/P FALL. History of Present Illness: 78-year-old male with a past medical history of dementia and BPH degenerative arthritis admitted to 3 falls in last 24 hours. On initial evaluation patient's epidural was 98.7F and WBC count was 11,700. ID consult was called for patient was calmed improved now. Patient has some mild bruising injury on the forehead. CT scan of the brain was performed and it showed no acute events. Past Medical History: dementia, BPH and degenerative arthritis Allergies Allergy/AdvReac Type Severity Reaction Status Date / Time No Known Allergies Allergy Verified 06/08/18 17:28 Vital Signs Temp 97.8 F 06/25/18 12:00 Pulse 77 06/25/18 12:00 Resp 18 06/25/18 12:00 BP 106/53 06/25/18 12:00 Pulse Ox 98 06/25/18 12:00 Intake & Output 06/24/18 06/25/18 06/25/18 18:59 06:59 18:59 Output Total 600 Balance -600 Weight (lbs) 48.988 kg Output: Urine 600 Other: [facility] Results - last 24 hr 06/24/18 06/24/18 06/25/18 23:25 23:25 11:40 WBC 11.7 H 9.5 RBC 3.83 3.35 L Hgb 11.9 L 10.9 L Hct 36.0 L 31.4 L MCV 93.8 93.7 MCH 31.2 H 32.5 H MCHC Differential 33.2 34.7 RDW 12.6 12.2 Plt Count 139 L 144 L MPV 8.6 8.1 Neutrophils % 54.9 48.9 Lymphocytes % 38.4 43.1 Monocytes % 4.7 5.6 Eosinophils % 1.0 1.5 Basophils % 1.0 0.9 Sodium 138 Potassium 5.1 Chloride 112 H Carbon Dioxide 15.6 L Anion Gap 15.5 BUN 38 H Creatinine 1.0 Est GFR ( Amer) TNP Est GFR (Non-Af Amer) TNP BUN/Creatinine Ratio 38.0 Glucose 99 Calcium 9.6 Total Bilirubin AST ALT Alkaline Phosphatase Total Protein Albumin Globulin Albumin/Globulin Ratio 06/25/18 11:40 WBC RBC Hgb Hct MCV MCH MCHC Differential RDW Plt Count MPV Neutrophils % Lymphocytes % Monocytes % Eosinophils % Basophils % Sodium 138 Potassium 3.6 Chloride 111 H Carbon Dioxide 21.0 Anion Gap 9.6 BUN 26 H Creatinine 0.8 Est GFR ( Amer) TNP Est GFR (Non-Af Amer) TNP BUN/Creatinine Ratio 32.5 Glucose 112 H Calcium 9.0 Total Bilirubin 0.5 AST 15 ALT 11 Alkaline Phosphatase 49 Total Protein 6.0 Albumin 3.2 L Globulin 2.8 Albumin/Globulin Ratio 1.1 Home Medication Medication Instructions Recorded Type Acetaminophen [Tylenol] 650 mg PO Q4HR PRN tab 06/21/18 Rx Al Hyd/Mg Hyd/Simethicone [Maalox] 30 ml PO Q4HR PRN udc 06/21/18 Rx Ascorbic Acid [Vitamin C] 500 mg PO DAILY tab 06/21/18 Rx Cholecalciferol (Vit D3) [Vitamin 1,000 iu PO DAILY tab 06/21/18 Rx D3] Megestrol Acetate 400 mg PO BID #10 ml 06/21/18 Rx Multivitamin w/ Minerals 1 tab PO DAILY tab 06/21/18 Rx [Theragran M] QUEtiapine Fumarate [SEROquel] 25 mg PO HS tab 06/21/18 Rx Magnesium Hydroxide [Milk of 30 ml PO Q24H PRN 06/24/18 History Magnesia] Melatonin 6 mg PO HS PRN 06/24/18 History Current Medications Generic Name Dose Route Start Last Admin Trade Name Freq PRN Reason Stop Dose Admin Acetaminophen 650 mg 06/25/18 12:59 Tylenol PO 08/24/18 12:58 Q4HR PRN Mild Pain / Temp above 100 Al Hydrox/Mg Hydrox/Simethicone 30 ml 06/25/18 12:59 Maalox PO 08/24/18 12:58 Q4HR PRN GI DISTRESS Ascorbic Acid 500 mg 06/26/18 09:00 Vitamin C PO 08/25/18 08:59 DAILY ENOC Cholecalciferol 1,000 iu 06/26/18 09:00 Vitamin D3 PO 08/25/18 08:59 DAILY ENOC Heparin Sodium (Porcine) 5,000 units 06/25/18 21:00 Heparin SUBQ 08/24/18 20:59 Q12HR ENOC Dextrose/Sodium Chloride 1,000 mls @ 100 mls/hr 06/25/18 02:00 06/25/18 05:11 D5-0.45ns IV 08/24/18 01:59 100 mls/hr .Q10H ENOC Administration Magnesium Hydroxide 30 ml 06/25/18 12:59 Milk Of Magnesia PO 08/24/18 12:58 Q24H PRN Constipation Miscellaneous 1 ea 06/25/18 09:47 Vte Chemical Prophylaxis Screen/ Admission 08/24/18 09:46 PRN PRN PROTOCOL Miscellaneous 400 mg 06/25/18 17:00 Megestrol Acetate [Megestrol Acetate] PO 08/24/18 16:59 BID ENOC Quetiapine Fumarate 25 mg 06/25/18 21:00 Seroquel PO 08/24/18 20:59 HS ENOC Protocol Review of Systems: A 12 point ROS was reviewed with the pertinent positive and negatives noted in the HPI. Social History Smoking Status Never smoker Drug Use No Alcohol Use No Family Medical History Unknown Physical Exam: General: Lying in bed. HEENT: Head: Normocephalic atraumatic. Oral cavity: Moist pink tongue Neck: Supple, no JVD. No use of X his neck muscles Cardio: S1 and S2 within normal limits regular rhythm. Respiratory: CTAP. Abdominal: Soft nontender nondistended bowel sounds present Genital/Urinary: Extremities: No sinus, no clubbing, no edema Neurological: Alert and awake confused cyanosis Assessment: 1. Leukocytosis. Likely reactive. 2. Recurrent falls. No acute fracture. No brain injury. 3. Dementia. Plan: Continue present treatment. Follow-up CBC in the morning. Nelly, Neo Meyers M.D. 325 72% with a past medical history of
--- NOTE | 2018-06-25 17:23 | History & Physical ---
ADMIT DATE: 06/25/2018 COVERING FOR: Dr. Partida. CHIEF COMPLAINT: Head trauma. HISTORY OF PRESENT ILLNESS: This is a 78-year-old female who is a longterm resident. Apparently, the patient was trying to get out of her wheelchair and the patient was tripped on her Han catheter, falling forward and hitting her forehead. The patient has had multiple falls in the last 3 days. The patient is unable to give any meaningful history. The patient is confused. PAST MEDICAL HISTORY: Arthritis, dementia, myalgia, non-Hodgkin's lymphoma, status post UTI. FAMILY HISTORY: Noncontributory. SOCIAL HISTORY: The patient is a longterm resident, requiring 24-hour nursing care. PAST SURGICAL HISTORY: Unknown. FAMILY HISTORY: Noncontributory. REVIEW OF SYSTEMS: Unable to obtain, patient is confused. PHYSICAL EXAMINATION: GENERAL: Elderly female, confused, in no apparent distress. VITAL SIGNS: Temperature 97.8, heart rate 77, blood pressure 106/53, respiration 18, O2 98%. HEENT: Head: Normocephalic, atraumatic. NECK: Supple. No mass. LUNGS: Clear bilaterally. HEART: Regular rate and rhythm. ABDOMEN: Soft, nontender. SKIN: The patient has a 1 cm right forehead abrasion. LABORATORY DATA: WBC 9.5, H and H 10.9/31.4, platelet of 144. Sodium 138, potassium 3.6, chloride 111, BUN 26, creatinine 0.8. DIAGNOSTICS: The patient had a CT of the head done, impression is no acute abnormalities, cerebral atrophy, supratentorial white matter changes that may reflect chronic small ischemic disease. ASSESSMENT: Blunt head trauma, status post fall, acute dehydration, anemia, dementia, history of myalgia, history of non-Hodgkin's lymphoma. PLAN: Fall precautions will be initiated. We will get Neurology on the case as well as Nephrology. We will monitor the patient's BUN and creatinine. IV fluids for hydration. Fall precautions will be initiated. We will get PT/OT evaluation. We will continue to follow this patient. JOB# [id number]
[2018-06-26] MEDS: D5-0.45NS 1,000 ML IV SCH ×2 (04:08→14:58)
[2018-06-26 07:24] LABS: BUN - UREA NITROGEN 24 mg/dL (7-25); CALCIUM SERUM 8.9 mg/dL (8.6-10.3); CARBON DIOXIDE 21.7 mEq/L (21.0-31.0); CHLORIDE 115 mEq/L (98-107); GLUCOSE 118 mg/dL (70-105); MAGNESIUM 1.9 mg/dL (1.9-2.7); PHOSPHOROUS 2.4 mg/dL (2.5-5.0); POTASSIUM SERUM 3.7 mEq/L (3.5-5.1); SODIUM SERUM 141 mEq/L (136-145); URIC ACID 6.4 mg/dL (2.3-6.6)
[2018-06-26] MEDS: Multivitamin w/ Minerals Tab PO SCH (10:05)
--- NOTE | 2018-06-26 15:13 | Infectious Disease Prog Note ---
Infectious Disease Subjective - Review of Systems Service Date: 06/26/18 Subjective: There is no new change. no fever. Infectious Disease Objective - Results Result Diagrams: 06/25/18 11:40 06/26/18 06:58 Recent Labs: Laboratory Last Values WBC 9.5 Th/cmm (4.8-10.8) 06/25/18 11:40 RBC 3.35 Mil/cmm (3.80-5.20) L 06/25/18 11:40 Hgb 10.9 gm/dL (12-16) L 06/25/18 11:40 Hct 31.4 % (41.0-60) L 06/25/18 11:40 MCV 93.7 fl (81-100) 06/25/18 11:40 MCH 32.5 pg (27.0-31.0) H 06/25/18 11:40 MCHC Differential 34.7 pg (28.0-36.0) 06/25/18 11:40 RDW 12.2 % (11.5-20.0) 06/25/18 11:40 Plt Count 144 Th/cmm (150-400) L 06/25/18 11:40 MPV 8.1 fl 06/25/18 11:40 Neutrophils % 48.9 % (40.0-80.0) 06/25/18 11:40 Lymphocytes % 43.1 % (20.0-50.0) 06/25/18 11:40 Monocytes % 5.6 % (2.0-10.0) 06/25/18 11:40 Eosinophils % 1.5 % (0.0-5.0) 06/25/18 11:40 Basophils % 0.9 % (0.0-2.0) 06/25/18 11:40 Sodium 141 mEq/L (136-145) 06/26/18 06:58 Potassium 3.7 mEq/L (3.5-5.1) 06/26/18 06:58 Chloride 115 mEq/L (98-107) H 06/26/18 06:58 Carbon Dioxide 21.7 mEq/L (21.0-31.0) 06/26/18 06:58 Anion Gap 8.0 (7.0-16.0) 06/26/18 06:58 BUN 24 mg/dL (7-25) 06/26/18 06:58 Creatinine 1.0 mg/dL (0.6-1.2) 06/26/18 06:58 Est GFR ( Amer) TNP 06/26/18 06:58 Est GFR (Non-Af Amer) TNP 06/26/18 06:58 BUN/Creatinine Ratio 24.0 06/26/18 06:58 Glucose 118 mg/dL (70-105) H 06/26/18 06:58 Uric Acid 6.4 mg/dL (2.3-6.6) 06/26/18 06:58 Calcium 8.9 mg/dL (8.6-10.3) 06/26/18 06:58 Phosphorus 2.4 mg/dL (2.5-5.0) L 06/26/18 06:58 Magnesium 1.9 mg/dL (1.9-2.7) 06/26/18 06:58 Total Bilirubin 0.5 mg/dL (0.3-1.0) 06/25/18 11:40 AST 15 U/L (13-39) 06/25/18 11:40 ALT 11 U/L (7-52) 06/25/18 11:40 Alkaline Phosphatase 49 U/L (34-104) 06/25/18 11:40 Total Protein 6.0 gm/dL (6.0-8.3) 06/25/18 11:40 Albumin 3.2 gm/dL (3.7-5.3) L 06/25/18 11:40 Globulin 2.8 gm/dL 06/25/18 11:40 Albumin/Globulin Ratio 1.1 (1.0-1.8) 06/25/18 11:40 TSH 4.66 uIU/ml (0.34-5.60) 06/26/18 06:58 - Physical Exam Vitals and I&O: Vital Signs Temp 97.9 F 06/26/18 12:00 Pulse 82 06/26/18 12:00 Resp 20 06/26/18 12:00 BP 101/50 06/26/18 12:00 Pulse Ox 99 06/26/18 12:00 Intake & Output 06/25/18 06/26/18 06/26/18 18:59 06:59 18:59 Intake Total 1000 1120 1000 Output Total 2400 Balance 1000 -1280 1000 Weight (lbs) 50.802 kg Intake: Intake, IV Amount 1000 1000 1000 D5-0.45NS 1,000 ml @ 100 1000 1000 1000 mls/hr IV .Q10H ENOC Rx#: [id number] Oral 120 Output: Urine 2400 Other: # Bowel Movements 2 Weight Source Bedscale Active Medications: Current Medications Acetaminophen (Tylenol) 650 mg PO Q4HR PRN PRN Reason: Mild Pain / Temp above 100 Stop: 08/24/18 12:58 Al Hydrox/Mg Hydrox/Simethicone (Maalox) 30 ml PO Q4HR PRN PRN Reason: GI DISTRESS Stop: 08/24/18 12:58 Ascorbic Acid (Vitamin C) 500 mg PO DAILY [facility] Stop: 08/25/18 08:59 Last Admin: 06/26/18 10:04 Dose: Not Given Cholecalciferol (Vitamin D3) 1,000 iu PO DAILY ENOC Stop: 08/25/18 08:59 Last Admin: 06/26/18 10:04 Dose: Not Given Heparin Sodium (Porcine) (Heparin) 5,000 units SUBQ Q12HR ENOC Stop: 08/24/18 20:59 Last Admin: 06/26/18 10:04 Dose: Not Given Dextrose/Sodium Chloride (D5-0.45ns) 1,000 mls @ 100 mls/hr IV .Q10H ENOC Stop: 08/24/18 01:59 Last Admin: 06/26/18 14:58 Dose: 100 mls/hr Magnesium Hydroxide (Milk Of Magnesia) 30 ml PO Q24H PRN PRN Reason: Constipation Stop: 08/24/18 12:58 Megestrol Acetate (Megace) 400 mg PO BID ENOC Stop: 08/24/18 16:59 Last Admin: 06/26/18 10:05 Dose: Not Given Miscellaneous (Vte Chemical Prophylaxis Screen/ Admission) 1 ea [facility] PRN PRN PRN Reason: PROTOCOL Stop: 08/24/18 09:46 Quetiapine Fumarate (Seroquel) 25 mg PO HS ENOC; Protocol Stop: 08/24/18 20:59 General: no acute distress, well developed, well nourished HEENT: atraumatic, normocephalic, PERRLA, EOMI Neck: supple, no thyromegaly Cardiovascular: S1S2, regular Lungs: clear to auscultation bilaterally, clear to percussion Abdomen: soft, no tender, no distended, no rebound Extremities: no cyanosis, no clubbing, no edema Neurological: awake, alert Infectious Disease Assmt/Plan - Assessment Assessment: 1. Leukocytosis. Likely reactive. 2. Recurrent falls. No acute fracture. No brain injury. 3. Dementia. - Plan Plan: neurology follow up. Nutritional Asmnt/Malnutr-PDOC - Dietary Evaluation Malnutrition Findings (Please click <Entered> for more info): Nutritional Asmnt/Malnutrition Start: 06/25/18 13: 34 Text: Status: Complete Freq: Protocol: Document 06/25/18 13:34 LCHENG (Rec: 06/25/18 13:44 LCCHELSEAG [email or web address]) Nutritional Asmnt/Malnutrition Patient General Information Nutritional Screening High Risk Diagnosis dehydration, blunt head trama s/p fall Pertinent Medical Hx/Surgical Hx arthritis, dementia, myalgia, non-hodgkin's lymphoma, s/p UTI Subjective Information Pt seen resting in bed at time of visit. Per nurse note, pt refused breakfast and stated yelling after encouraging her to eat. Current Diet Order/ Nutrition Support regular Pertinent Medications vit C, Vit D3, D5-0.45ns, megace, seroquel Pertinent Labs 06/25 Cl 111, BUN 26, glucose 112, alb 3.2 Nutritional Hx/Data Height 1.65 m Height (Calculated Centimeters) 165.1 Current Weight (lbs) 48.988 kg Weight (Calculated Kilograms) 49.0 Weight (Calculated Grams) 67058.0 [place] Body Weight 125 Body Mass Index (BMI) 17.9 Weight Status Underweight GI Symptoms GI Symptoms None Last BM not indicated Difficult in: None Skin Integrity/Comment: bruise to left shoulder and left forehead, abrasion reddened to right forehead, decubitus ulceration to sacrum Current %PO Negligible < 25% Estimated Nutritional Goals BEE in Kcals: Using Current wt Calories/Kcals/Kg 27-32 Kcals Calculated 9887-9804 Protein: Using Current wt Protein g/k-1.2 Protein Calculated 49-59 Fluid: ml 1323-1568ml (1ml/kcal) Nutritional Problem 1. Problem Problem altered nutrition related labs Etiology electrolytes/fluid imbalance Signs/Symptoms: cl 111, BUN 26 Intervention/Recommendation Comments 1. Continue with regular diet as ordered. Nurse to encourage oral intake and assist with meals. Recommend small frequent meals, adding snacks between meals. 2. Monitor PO intake, wt, labs and skin integrity 3. F/U as high risk in 2-3 days, 06/27-06/28 Expected Outcomes/Goals Expected Outcomes/Goals 1. PO intake to meet at least 75% of nutritional needs. 2. Wt stability, skin to remain intact, labs to approach WNL.
--- NOTE | 2018-06-26 16:19 | General Progress Note ---
Subjective - Review of Systems Service Date: 06/26/18 Subjective: awake, verbal, comfortable Objective - Results Result Diagrams: 06/25/18 11:40 06/26/18 06:58 Recent Labs: Laboratory Last Values WBC 9.5 Th/cmm (4.8-10.8) 06/25/18 11:40 RBC 3.35 Mil/cmm (3.80-5.20) L 06/25/18 11:40 Hgb 10.9 gm/dL (12-16) L 06/25/18 11:40 Hct 31.4 % (41.0-60) L 06/25/18 11:40 MCV 93.7 fl (81-100) 06/25/18 11:40 MCH 32.5 pg (27.0-31.0) H 06/25/18 11:40 MCHC Differential 34.7 pg (28.0-36.0) 06/25/18 11:40 RDW 12.2 % (11.5-20.0) 06/25/18 11:40 Plt Count 144 Th/cmm (150-400) L 06/25/18 11:40 MPV 8.1 fl 06/25/18 11:40 Neutrophils % 48.9 % (40.0-80.0) 06/25/18 11:40 Lymphocytes % 43.1 % (20.0-50.0) 06/25/18 11:40 Monocytes % 5.6 % (2.0-10.0) 06/25/18 11:40 Eosinophils % 1.5 % (0.0-5.0) 06/25/18 11:40 Basophils % 0.9 % (0.0-2.0) 06/25/18 11:40 Sodium 141 mEq/L (136-145) 06/26/18 06:58 Potassium 3.7 mEq/L (3.5-5.1) 06/26/18 06:58 Chloride 115 mEq/L (98-107) H 06/26/18 06:58 Carbon Dioxide 21.7 mEq/L (21.0-31.0) 06/26/18 06:58 Anion Gap 8.0 (7.0-16.0) 06/26/18 06:58 BUN 24 mg/dL (7-25) 06/26/18 06:58 Creatinine 1.0 mg/dL (0.6-1.2) 06/26/18 06:58 Est GFR ( Amer) TNP 06/26/18 06:58 Est GFR (Non-Af Amer) TNP 06/26/18 06:58 BUN/Creatinine Ratio 24.0 06/26/18 06:58 Glucose 118 mg/dL (70-105) H 06/26/18 06:58 Uric Acid 6.4 mg/dL (2.3-6.6) 06/26/18 06:58 Calcium 8.9 mg/dL (8.6-10.3) 06/26/18 06:58 Phosphorus 2.4 mg/dL (2.5-5.0) L 06/26/18 06:58 Magnesium 1.9 mg/dL (1.9-2.7) 06/26/18 06:58 Total Bilirubin 0.5 mg/dL (0.3-1.0) 06/25/18 11:40 AST 15 U/L (13-39) 06/25/18 11:40 ALT 11 U/L (7-52) 06/25/18 11:40 Alkaline Phosphatase 49 U/L (34-104) 06/25/18 11:40 Total Protein 6.0 gm/dL (6.0-8.3) 06/25/18 11:40 Albumin 3.2 gm/dL (3.7-5.3) L 06/25/18 11:40 Globulin 2.8 gm/dL 06/25/18 11:40 Albumin/Globulin Ratio 1.1 (1.0-1.8) 06/25/18 11:40 TSH 4.66 uIU/ml (0.34-5.60) 06/26/18 06:58 - Physical Exam Vitals and I&O: Vital Signs Temp 98.2 F 06/26/18 15:43 Pulse 83 06/26/18 15:43 Resp 18 06/26/18 15:43 BP 89/41 06/26/18 15:43 Pulse Ox 98 06/26/18 15:43 Intake & Output 06/25/18 06/26/18 06/26/18 18:59 06:59 18:59 Intake Total 1000 1120 1000 Output Total 2400 Balance 1000 -1280 1000 Weight (lbs) 50.802 kg Intake: Intake, IV Amount 1000 1000 1000 D5-0.45NS 1,000 ml @ 100 1000 1000 1000 mls/hr IV .Q10H [facility] Rx#: [id number] Oral 120 Output: Urine 2400 Other: # Bowel Movements 2 Weight Source Bedscale Active Medications: Current Medications Acetaminophen (Tylenol) 650 mg PO Q4HR PRN PRN Reason: Mild Pain / Temp above 100 Stop: 08/24/18 12:58 Al Hydrox/Mg Hydrox/Simethicone (Maalox) 30 ml PO Q4HR PRN PRN Reason: GI DISTRESS Stop: 08/24/18 12:58 Ascorbic Acid (Vitamin C) 500 mg PO DAILY [facility] Stop: 08/25/18 08:59 Last Admin: 06/26/18 10:04 Dose: Not Given Cholecalciferol (Vitamin D3) 1,000 iu PO DAILY [facility] Stop: 08/25/18 08:59 Last Admin: 06/26/18 10:04 Dose: Not Given Heparin Sodium (Porcine) (Heparin) 5,000 units SUBQ Q12HR [facility] Stop: 08/24/18 20:59 Last Admin: 06/26/18 10:04 Dose: Not Given Dextrose/Sodium Chloride (D5-0.45ns) 1,000 mls @ 100 mls/hr IV .Q10H [facility] Stop: 08/24/18 01:59 Last Admin: 06/26/18 14:58 Dose: 100 mls/hr Magnesium Hydroxide (Milk Of Magnesia) 30 ml PO Q24H PRN PRN Reason: Constipation Stop: 08/24/18 12:58 Megestrol Acetate (Megace) 400 mg PO BID [facility] Stop: 08/24/18 16:59 Last Admin: 06/26/18 10:05 Dose: Not Given Miscellaneous (Vte Chemical Prophylaxis Screen/ Admission) 1 ea [facility] PRN PRN PRN Reason: PROTOCOL Stop: 08/24/18 09:46 Quetiapine Fumarate (Seroquel) 25 mg PO HS [facility]; Protocol Stop: 08/24/18 20:59 General: Alert, No acute distress HEENT: PERRLA, Mucous membr. moist/pink, Other (right forehead abrasion) Neck: Supple, +2 carotid pulse wo bruit Cardiovascular: Regular rate, Normal S1, Normal S2 Lungs: Clear to auscultation Abdomen: Bowel sounds, Soft Extremities: no Edema Neurological: Sensation intact Skin: no Rash Psych/Mental Status: Mood NL Assessment/Plan - Assessment Assessment: BENSON Dehydration S/P fall 2/2 cath, consider also psych meds, ortho hypotension Alzh Dementia DJD Sacral Ulcer NHL Peripheral Neuropathy - Plan Plan: Lab - Result Diagrams 06/25/18 11:40 06/26/18 06:58 Current Medications Acetaminophen (Tylenol) 650 mg PO Q4HR PRN PRN Reason: Mild Pain / Temp above 100 Stop: 08/24/18 12:58 Al Hydrox/Mg Hydrox/Simethicone (Maalox) 30 ml PO Q4HR PRN PRN Reason: GI DISTRESS Stop: 08/24/18 12:58 Ascorbic Acid (Vitamin C) 500 mg PO DAILY [facility] Stop: 08/25/18 08:59 Last Admin: 06/26/18 10:04 Dose: Not Given Cholecalciferol (Vitamin D3) 1,000 iu PO DAILY [facility] Stop: 08/25/18 08:59 Last Admin: 06/26/18 10:04 Dose: Not Given Heparin Sodium (Porcine) (Heparin) 5,000 units SUBQ Q12HR [facility] Stop: 08/24/18 20:59 Last Admin: 06/26/18 10:04 Dose: Not Given Dextrose/Sodium Chloride (D5-0.45ns) 1,000 mls @ 100 mls/hr IV .Q10H [facility] Stop: 08/24/18 01:59 Last Admin: 06/26/18 14:58 Dose: 100 mls/hr Magnesium Hydroxide (Milk Of Magnesia) 30 ml PO Q24H PRN PRN Reason: Constipation Stop: 08/24/18 12:58 Megestrol Acetate (Megace) 400 mg PO BID [facility] Stop: 08/24/18 16:59 Last Admin: 06/26/18 10:05 Dose: Not Given Miscellaneous (Vte Chemical Prophylaxis Screen/ Admission) 1 ea [facility] PRN PRN PRN Reason: PROTOCOL Stop: 08/24/18 09:46 Quetiapine Fumarate (Seroquel) 25 mg PO HS [facility]; Protocol Stop: 08/24/18 20:59 Lab - Result Diagrams 06/25/18 11:40 06/26/18 06:58 Kidney fnc stable w/ BUN/CR of 24/1 continue IVF encourage po intake Nutritional Asmnt/Malnutr-PDOC - Dietary Evaluation Malnutrition Findings (Please click <Entered> for more info): Nutritional Asmnt/Malnutrition Start: 06/25/18 13: 34 Text: Status: Complete Freq: Protocol: Document 06/25/18 13:34 LCCHELSEAG (Rec: 06/25/18 13:44 LCHENG [email or web address]) Nutritional Asmnt/Malnutrition Patient General Information Nutritional Screening High Risk Diagnosis dehydration, blunt head trama s/p fall Pertinent Medical Hx/Surgical Hx arthritis, dementia, myalgia, non-hodgkin's lymphoma, s/p UTI Subjective Information Pt seen resting in bed at time of visit. Per nurse note, pt refused breakfast and stated yelling after encouraging her to eat. Current Diet Order/ Nutrition Support regular Pertinent Medications vit C, Vit D3, D5-0.45ns, megace, seroquel Pertinent Labs 06/25 Cl 111, BUN 26, glucose 112, alb 3.2 Nutritional Hx/Data Height 1.65 m Height (Calculated Centimeters) 165.1 Current Weight (lbs) 48.988 kg Weight (Calculated Kilograms) 49.0 Weight (Calculated Grams) 51228.0 [place] Body Weight 125 Body Mass Index (BMI) 17.9 Weight Status Underweight GI Symptoms GI Symptoms None Last BM not indicated Difficult in: None Skin Integrity/Comment: bruise to left shoulder and left forehead, abrasion reddened to right forehead, decubitus ulceration to sacrum Current %PO Negligible < 25% Estimated Nutritional Goals BEE in Kcals: Using Current wt Calories/Kcals/Kg 27-32 Kcals Calculated 6945-4350 Protein: Using Current wt Protein g/k-1.2 Protein Calculated 49-59 Fluid: ml 1323-1568ml (1ml/kcal) Nutritional Problem 1. Problem Problem altered nutrition related labs Etiology electrolytes/fluid imbalance Signs/Symptoms: cl 111, BUN 26 Intervention/Recommendation Comments 1. Continue with regular diet as ordered. Nurse to encourage oral intake and assist with meals. Recommend small frequent meals, adding snacks between meals. 2. Monitor PO intake, wt, labs and skin integrity 3. F/U as high risk in 2-3 days, 06/27-06/28 Expected Outcomes/Goals Expected Outcomes/Goals 1. PO intake to meet at least 75% of nutritional needs. 2. Wt stability, skin to remain intact, labs to approach WNL.
--- NOTE | 2018-06-26 16:26 | Internal Medicine Prog Note ---
Internal Medicine Subjective - Subjective Service Date: 06/26/18 Patient seen and examined:: with staff Patient is:: awake Per staff patient has:: tolerating meds Internal Medicine Objective - Results Result Diagrams: 06/25/18 11:40 06/26/18 06:58 Recent Labs: Laboratory Last Values WBC 9.5 Th/cmm (4.8-10.8) 06/25/18 11:40 RBC 3.35 Mil/cmm (3.80-5.20) L 06/25/18 11:40 Hgb 10.9 gm/dL (12-16) L 06/25/18 11:40 Hct 31.4 % (41.0-60) L 06/25/18 11:40 MCV 93.7 fl (81-100) 06/25/18 11:40 MCH 32.5 pg (27.0-31.0) H 06/25/18 11:40 MCHC Differential 34.7 pg (28.0-36.0) 06/25/18 11:40 RDW 12.2 % (11.5-20.0) 06/25/18 11:40 Plt Count 144 Th/cmm (150-400) L 06/25/18 11:40 MPV 8.1 fl 06/25/18 11:40 Neutrophils % 48.9 % (40.0-80.0) 06/25/18 11:40 Lymphocytes % 43.1 % (20.0-50.0) 06/25/18 11:40 Monocytes % 5.6 % (2.0-10.0) 06/25/18 11:40 Eosinophils % 1.5 % (0.0-5.0) 06/25/18 11:40 Basophils % 0.9 % (0.0-2.0) 06/25/18 11:40 Sodium 141 mEq/L (136-145) 06/26/18 06:58 Potassium 3.7 mEq/L (3.5-5.1) 06/26/18 06:58 Chloride 115 mEq/L (98-107) H 06/26/18 06:58 Carbon Dioxide 21.7 mEq/L (21.0-31.0) 06/26/18 06:58 Anion Gap 8.0 (7.0-16.0) 06/26/18 06:58 BUN 24 mg/dL (7-25) 06/26/18 06:58 Creatinine 1.0 mg/dL (0.6-1.2) 06/26/18 06:58 Est GFR ( Amer) TNP 06/26/18 06:58 Est GFR (Non-Af Amer) TNP 06/26/18 06:58 BUN/Creatinine Ratio 24.0 06/26/18 06:58 Glucose 118 mg/dL (70-105) H 06/26/18 06:58 Uric Acid 6.4 mg/dL (2.3-6.6) 06/26/18 06:58 Calcium 8.9 mg/dL (8.6-10.3) 06/26/18 06:58 Phosphorus 2.4 mg/dL (2.5-5.0) L 06/26/18 06:58 Magnesium 1.9 mg/dL (1.9-2.7) 06/26/18 06:58 Total Bilirubin 0.5 mg/dL (0.3-1.0) 06/25/18 11:40 AST 15 U/L (13-39) 06/25/18 11:40 ALT 11 U/L (7-52) 06/25/18 11:40 Alkaline Phosphatase 49 U/L (34-104) 06/25/18 11:40 Total Protein 6.0 gm/dL (6.0-8.3) 06/25/18 11:40 Albumin 3.2 gm/dL (3.7-5.3) L 06/25/18 11:40 Globulin 2.8 gm/dL 06/25/18 11:40 Albumin/Globulin Ratio 1.1 (1.0-1.8) 06/25/18 11:40 TSH 4.66 uIU/ml (0.34-5.60) 06/26/18 06:58 - Physical Exam Vitals and I&O: Vital Signs Temp 98.2 F 06/26/18 15:43 Pulse 83 06/26/18 15:43 Resp 18 06/26/18 15:43 BP 89/41 06/26/18 15:43 Pulse Ox 98 06/26/18 15:43 Intake & Output 06/25/18 06/26/18 06/26/18 18:59 06:59 18:59 Intake Total 1000 1120 1000 Output Total 2400 Balance 1000 -1280 1000 Weight (lbs) 112 lb Intake: Intake, IV Amount 1000 1000 1000 D5-0.45NS 1,000 ml @ 100 1000 1000 1000 mls/hr IV .Q10H [facility] Rx#: [id number] Oral 120 Output: Urine 2400 Other: # Bowel Movements 2 Weight Source Bedscale Active Medications: Current Medications Acetaminophen (Tylenol) 650 mg PO Q4HR PRN PRN Reason: Mild Pain / Temp above 100 Stop: 08/24/18 12:58 Al Hydrox/Mg Hydrox/Simethicone (Maalox) 30 ml PO Q4HR PRN PRN Reason: GI DISTRESS Stop: 08/24/18 12:58 Ascorbic Acid (Vitamin C) 500 mg PO DAILY [facility] Stop: 08/25/18 08:59 Last Admin: 06/26/18 10:04 Dose: Not Given Cholecalciferol (Vitamin D3) 1,000 iu PO DAILY [facility] Stop: 08/25/18 08:59 Last Admin: 06/26/18 10:04 Dose: Not Given Heparin Sodium (Porcine) (Heparin) 5,000 units SUBQ Q12HR [facility] Stop: 08/24/18 20:59 Last Admin: 06/26/18 10:04 Dose: Not Given Dextrose/Sodium Chloride (D5-0.45ns) 1,000 mls @ 100 mls/hr IV .Q10H [facility] Stop: 08/24/18 01:59 Last Admin: 06/26/18 14:58 Dose: 100 mls/hr Magnesium Hydroxide (Milk Of Magnesia) 30 ml PO Q24H PRN PRN Reason: Constipation Stop: 08/24/18 12:58 Megestrol Acetate (Megace) 400 mg PO BID [facility] Stop: 08/24/18 16:59 Last Admin: 06/26/18 10:05 Dose: Not Given Miscellaneous (Vte Chemical Prophylaxis Screen/ Admission) 1 ea [facility] PRN PRN PRN Reason: PROTOCOL Stop: 08/24/18 09:46 Quetiapine Fumarate (Seroquel) 25 mg PO HS [facility]; Protocol Stop: 08/24/18 20:59 General: weak, alert HEENT: NC/AT, PERRLA Neck: Supple Lungs: CTAB Cardiovascular: RRR, Normal S1, Normal S2 Abdomen: soft, non-tender, non-distended, positive bowel sound Extremities: excoriation Internal Medicine Assmt/Plan - Assessment Assessment: Leukocytosis frequent falls dementia - Plan Plan: carotid u/s neuro follow up dc planning once cleared by neuro Nutritional Asmnt/Malnutr-PDOC - Dietary Evaluation Malnutrition Findings (Please click <Entered> for more info): Nutritional Asmnt/Malnutrition Start: 06/25/18 13: 34 Text: Status: Complete Freq: Protocol: Document 06/25/18 13:34 LCHENG (Rec: 06/25/18 13:44 HEN [email or web address]) Nutritional Asmnt/Malnutrition Patient General Information Nutritional Screening High Risk Diagnosis dehydration, blunt head trama s/p fall Pertinent Medical Hx/Surgical Hx arthritis, dementia, myalgia, non-hodgkin's lymphoma, s/p UTI Subjective Information Pt seen resting in bed at time of visit. Per nurse note, pt refused breakfast and stated yelling after encouraging her to eat. Current Diet Order/ Nutrition Support regular Pertinent Medications vit C, Vit D3, D5-0.45ns, megace, seroquel Pertinent Labs 06/25 Cl 111, BUN 26, glucose 112, alb 3.2 Nutritional Hx/Data Height 5 ft 5 in Height (Calculated Centimeters) 165.1 Current Weight (lbs) 108 lb Weight (Calculated Kilograms) 49.0 Weight (Calculated Grams) 88351.0 [place] Body Weight 125 Body Mass Index (BMI) 17.9 Weight Status Underweight GI Symptoms GI Symptoms None Last BM not indicated Difficult in: None Skin Integrity/Comment: bruise to left shoulder and left forehead, abrasion reddened to right forehead, decubitus ulceration to sacrum Current %PO Negligible < 25% Estimated Nutritional Goals BEE in Kcals: Using Current wt Calories/Kcals/Kg 27-32 Kcals Calculated 3028-9143 Protein: Using Current wt Protein g/k-1.2 Protein Calculated 49-59 Fluid: ml 1323-1568ml (1ml/kcal) Nutritional Problem 1. Problem Problem altered nutrition related labs Etiology electrolytes/fluid imbalance Signs/Symptoms: cl 111, BUN 26 Intervention/Recommendation Comments 1. Continue with regular diet as ordered. Nurse to encourage oral intake and assist with meals. Recommend small frequent meals, adding snacks between meals. 2. Monitor PO intake, wt, labs and skin integrity 3. F/U as high risk in 2-3 days, 06/27-06/28 Expected Outcomes/Goals Expected Outcomes/Goals 1. PO intake to meet at least 75% of nutritional needs. 2. Wt stability, skin to remain intact, labs to approach WNL.
--- NOTE | 2018-06-26 19:42 | Consultation ---
DATE OF CONSULTATION: 06/25/2018 REFERRING PHYSICIAN: Dr. Partida. REASON FOR CONSULTATION: Worsening kidney function, electrolyte imbalance and fluid management. HISTORY OF PRESENT ILLNESS: This is a 78-year-old female with past medical history of Alzheimer's dementia, was brought in because of a mechanical fall. A few hours prior to admission, the patient was supposedly tripped by her Han catheter, fell and struck her forehead. She had history of several falls in the past previous days. Because of this, she was brought to the Emergency Room. CT scan of the head turned out to have no acute event. White count was 11.7 with a temperature of 98.7 degrees, blood pressure of 106/53. Her BUN/creatinine on admission were 38/1. She was hydrated and her BUN/creatinine today were 26/0.8. She has no history of nausea and vomiting, no diarrhea. PAST MEDICAL HISTORY: 1. Alzheimer dementia. 2. Depression. 3. Degenerative joint disease. 4. Sacral ulcer. 5. Non-Hodgkin's lymphoma. 6. Peripheral neuropathy. CURRENT MEDICATIONS: She is currently on acetaminophen, ascorbic acid, cholecalciferol, magnesium hydroxide, Megace, multivitamins, quetiapine. ALLERGIES: No known drug allergies. SOCIAL AND FAMILY HISTORY: I was unable to obtain directly from the patient because of her dementia and also confusion. REVIEW OF SYSTEMS: Again, I was unable to decipher directly from the patient because of the same reason. PHYSICAL EXAMINATION: GENERAL: The patient is awake, cachectic, confused, but not in any form of distress. SKIN: Poor turgor, warm, no rash, no jaundice appreciated. HEENT: She does have a 1 cm right forehead abrasion. Eyes: Extraocular muscles intact. Pupils equal, round, reactive to light and accommodates. Anicteric sclerae. Pale conjunctivae. Nose, midline nasal septum. Mouth: Dry mucosa. Poor dentition. NECK: Supple, no adenopathy, no thyromegaly, no bruits. Trachea palpated in the midline. CHEST AND CARDIOVASCULAR: S1, S2. No rub, murmur or gallop appreciated. Point of maximal impulse fifth intercostal space, left midclavicular line. No abdominal or femoral bruits appreciated. LUNGS: Equal expansion. No use of accessory muscles. No supraclavicular retractions. Decreased breath sounds, clear to auscultation without any wheeze. BREASTS: Symmetrical, without any discharge. ABDOMEN: Flat, soft, positive for bowel sounds. No bruits either diastolic or systolic. RECTAL: Lax sphincter tone. GENITOURINARY: Normal appearing female genitalia. MUSCULOSKELETAL: No effusions present in her joints with adequate range of motion. EXTREMITIES: No evidence of edema, cyanosis or clubbing with palpable femoral, popliteal and dorsalis pedis pulses. NEUROLOGIC: The patient is awake; however, remains confused at the present time, so she was not able to follow my neuro commands and I was unable to pursue further my neuro exam. LABORATORY DATA: Did reveal white count 9.5, hemoglobin 10.9, hematocrit 31.4, platelets 144, polys 48.9%. Sodium 138, potassium 3.6, chloride 111, bicarbonate 21, BUN 26, creatinine 0.8, glucose 112, calcium 9. IMPRESSION: 1. Acute kidney injury. The patient likely had a prerenal azotemia with adequate correction of kidney function with hydration. 2. Dehydration. 3. Status post fall secondary to Han catheter, but also she has history of other falls in the past, so need to consider possibly her intake of psychotic medications as well as episodes of orthostatic hypotension. 4. She has Alzheimer's dementia. 5. Depression. 6. Degenerative joint disease. 7. Sacral ulcer. 8. Non-Hodgkin's lymphoma. 9. Peripheral neuropathy. PLAN: 1. Continue with IV fluids. 2. Urine spot sodium, eosinophils, creatinine. 3. Urine microalbumin to creatinine ratio. 4. Physical therapy. 5. Encourage p.o. intake. Thank you Dr. Partida for this consult. I will follow the patient closely with you. JOB# [id number]
[2018-06-26 19:49] LABS: EOSINOPHIL SMEAR SOURCE URINE; EOSINOPHILS SMEAR COUNT NONE SEEN (NONE SEEN)
[2018-06-27 06:56] LABS: % BASOPHILS 0.2 % (0.0-2.0); % EOSINOPHILS 1.7 % (0.0-5.0); % LYMPHOCYTES 46.9 % (20.0-50.0); % MONOCYTES 6.8 % (2.0-10.0); % NEUTROPHILS 44.4 % (40.0-80.0); EOSINOPHILE ABSOLUTE 0.2 Th/cmm (0.1-0.4); HEMATOCRIT 29.2 % (41.0-60); LYMPHOCYTE ABSOLUTE 4.3 Th/cmm (1.5-3.0); MEAN CELL VOLUME 94.5 fl (81-100); MEAN CORPUSCULAR HEMOGLOBIN 32.2 pg (27.0-31.0); MEAN CORPUSCULAR HGB CONC 34.1 pg (28.0-36.0); MONOCYTE ABSOLUTE 0.6 Th/cmm (0.3-1.0); PLATELET COUNT 122 Th/cmm (150-400); RED BLOOD COUNT 3.09 Mil/cmm (3.80-5.20); RED CELL DISTRIBUTION WIDTH 12.9 % (11.5-20.0); WHITE BLOOD COUNT 9.1 Th/cmm (4.8-10.8)
[2018-06-27 07:20] LABS: ANION GAP 8.9 (7.0-16.0); BUN - UREA NITROGEN 24 mg/dL (7-25); CALCIUM SERUM 8.8 mg/dL (8.6-10.3); CARBON DIOXIDE 20.6 mEq/L (21.0-31.0); CHLORIDE 113 mEq/L (98-107); GLUCOSE 101 mg/dL (70-105); POTASSIUM SERUM 3.5 mEq/L (3.5-5.1); SODIUM SERUM 139 mEq/L (136-145)
[2018-06-27] MEDS: D5-0.45NS 1,000 ML IV SCH (09:04)
[2018-06-27] MEDS: Multivitamin w/ Minerals Tab PO SCH (09:11)
--- NOTE | 2018-06-27 13:28 | Internal Medicine Prog Note ---
Internal Medicine Subjective - Subjective Service Date: 06/27/18 Patient is:: awake Per staff patient has:: tolerating meds Internal Medicine Objective - Results Result Diagrams: 06/27/18 06:15 06/27/18 06:15 Recent Labs: Laboratory Last Values WBC 9.1 Th/cmm (4.8-10.8) 06/27/18 06:15 RBC 3.09 Mil/cmm (3.80-5.20) L 06/27/18 06:15 Hgb 10.0 gm/dL (12-16) L 06/27/18 06:15 Hct 29.2 % (41.0-60) L 06/27/18 06:15 MCV 94.5 fl (81-100) 06/27/18 06:15 MCH 32.2 pg (27.0-31.0) H 06/27/18 06:15 MCHC Differential 34.1 pg (28.0-36.0) 06/27/18 06:15 RDW 12.9 % (11.5-20.0) 06/27/18 06:15 Plt Count 122 Th/cmm (150-400) L 06/27/18 06:15 MPV 9.0 fl 06/27/18 06:15 Neutrophils % 44.4 % (40.0-80.0) 06/27/18 06:15 Lymphocytes % 46.9 % (20.0-50.0) 06/27/18 06:15 Monocytes % 6.8 % (2.0-10.0) 06/27/18 06:15 Eosinophils % 1.7 % (0.0-5.0) 06/27/18 06:15 Basophils % 0.2 % (0.0-2.0) 06/27/18 06:15 Eos Smear Source URINE 06/26/18 18:10 Eos Smear Total Cells NONE SEEN (NONE SEEN) 06/26/18 18:10 Sodium 139 mEq/L (136-145) 06/27/18 06:15 Potassium 3.5 mEq/L (3.5-5.1) 06/27/18 06:15 Chloride 113 mEq/L (98-107) H 06/27/18 06:15 Carbon Dioxide 20.6 mEq/L (21.0-31.0) L 06/27/18 06:15 Anion Gap 8.9 (7.0-16.0) 06/27/18 06:15 BUN 24 mg/dL (7-25) 06/27/18 06:15 Creatinine 1.0 mg/dL (0.6-1.2) 06/27/18 06:15 Est GFR ( Amer) TNP 06/27/18 06:15 Est GFR (Non-Af Amer) TNP 06/27/18 06:15 BUN/Creatinine Ratio 24.0 06/27/18 06:15 Glucose 101 mg/dL (70-105) 06/27/18 06:15 Uric Acid 6.4 mg/dL (2.3-6.6) 06/26/18 06:58 Calcium 8.8 mg/dL (8.6-10.3) 06/27/18 06:15 Phosphorus 2.4 mg/dL (2.5-5.0) L 06/26/18 06:58 Magnesium 1.9 mg/dL (1.9-2.7) 06/26/18 06:58 Total Bilirubin 0.5 mg/dL (0.3-1.0) 06/25/18 11:40 AST 15 U/L (13-39) 06/25/18 11:40 ALT 11 U/L (7-52) 06/25/18 11:40 Alkaline Phosphatase 49 U/L (34-104) 06/25/18 11:40 Total Protein 6.0 gm/dL (6.0-8.3) 06/25/18 11:40 Albumin 3.2 gm/dL (3.7-5.3) L 06/25/18 11:40 Globulin 2.8 gm/dL 06/25/18 11:40 Albumin/Globulin Ratio 1.1 (1.0-1.8) 06/25/18 11:40 TSH 4.66 uIU/ml (0.34-5.60) 06/26/18 06:58 Ur Random Sodium 93 mmol/L 06/26/18 18:10 Urine Creatinine 29.0 mg/dl (28.0-217.0) 06/26/18 18:10 Microalb/Creat Ratio 210.2 mg/g creat (0.0-30.0) H 06/26/18 18:10 - Physical Exam Vitals and I&O: Vital Signs Temp 98.7 F 06/27/18 08:21 Pulse 78 06/27/18 08:21 Resp 17 06/27/18 08:21 BP 107/61 06/27/18 08:21 Pulse Ox 99 06/27/18 08:21 Intake & Output 06/26/18 06/27/18 06/27/18 18:59 06:59 18:59 Intake Total 1850 1060 Output Total 650 750 Balance 1200 310 Weight (lbs) 112 lb 112 lb Intake: Intake, IV Amount 1000 1000 D5-0.45NS 1,000 ml @ 100 1000 1000 mls/hr IV .Q10H REPLACED BY [facility] Rx#: [id number] Oral 850 60 Output: Urine 650 750 Stool 0 Other: Weight Source Bedscale Bedscale Active Medications: Current Medications Acetaminophen (Tylenol) 650 mg PO Q4HR PRN PRN Reason: Mild Pain / Temp above 100 Stop: 08/24/18 12:58 Al Hydrox/Mg Hydrox/Simethicone (Maalox) 30 ml PO Q4HR PRN PRN Reason: GI DISTRESS Stop: 08/24/18 12:58 Ascorbic Acid (Vitamin C) 500 mg PO DAILY [facility]PLACED BY [facility] Stop: 08/25/18 08:59 Last Admin: 06/27/18 09:11 Dose: Not Given Cholecalciferol (Vitamin D3) 1,000 iu PO DAILY REPLACED BY [facility] Stop: 08/25/18 08:59 Last Admin: 06/27/18 09:11 Dose: Not Given Heparin Sodium (Porcine) (Heparin) 5,000 units SUBQ Q12HR REPLACED BY [facility] Stop: 08/24/18 20:59 Last Admin: 06/27/18 09:11 Dose: Not Given Dextrose/Sodium Chloride (D5-0.45ns) 1,000 mls @ 100 mls/hr IV .Q10H REPLACED BY [facility] Stop: 08/24/18 01:59 Last Admin: 06/27/18 09:04 Dose: 100 mls/hr Magnesium Hydroxide (Milk Of Magnesia) 30 ml PO Q24H PRN PRN Reason: Constipation Stop: 08/24/18 12:58 Megestrol Acetate (Megace) 400 mg PO BID REPLACED BY [facility] Stop: 08/24/18 16:59 Last Admin: 06/27/18 09:11 Dose: Not Given Miscellaneous (Vte Chemical Prophylaxis Screen/ Admission) 1 ea [facility] PRN PRN PRN Reason: PROTOCOL Stop: 08/24/18 09:46 Quetiapine Fumarate (Seroquel) 25 mg PO HS ENOC; Protocol Stop: 08/26/18 20:59 General: weak, alert HEENT: NC/AT, PERRLA Neck: Supple Lungs: CTAB Cardiovascular: RRR, Normal S1, Normal S2 Abdomen: soft, non-tender, non-distended, positive bowel sound Extremities: excoriation Internal Medicine Assmt/Plan - Assessment Assessment: Leukocytosis frequent falls dementia - Plan Plan: carotid u/s to be done neuro follow up dc planning once cleared by neuro Nutritional Asmnt/Malnutr-PDOC - Dietary Evaluation Malnutrition Findings (Please click <Entered> for more info): Nutritional Asmnt/Malnutrition Start: 06/25/18 13: 34 Text: Status: Complete Freq: Protocol: Document 06/25/18 13:34 LCCHELSEAG (Rec: 06/25/18 13:44 LCCHELSEAG [email or web address]) Nutritional Asmnt/Malnutrition Patient General Information Nutritional Screening High Risk Diagnosis dehydration, blunt head trama s/p fall Pertinent Medical Hx/Surgical Hx arthritis, dementia, myalgia, non-hodgkin's lymphoma, s/p UTI Subjective Information Pt seen resting in bed at time of visit. Per nurse note, pt refused breakfast and stated yelling after encouraging her to eat. Current Diet Order/ Nutrition Support regular Pertinent Medications vit C, Vit D3, D5-0.45ns, megace, seroquel Pertinent Labs 06/25 Cl 111, BUN 26, glucose 112, alb 3.2 Nutritional Hx/Data Height 5 ft 5 in Height (Calculated Centimeters) 165.1 Current Weight (lbs) 108 lb Weight (Calculated Kilograms) 49.0 Weight (Calculated Grams) 63295.0 [place] Body Weight 125 Body Mass Index (BMI) 17.9 Weight Status Underweight GI Symptoms GI Symptoms None Last BM not indicated Difficult in: None Skin Integrity/Comment: bruise to left shoulder and left forehead, abrasion reddened to right forehead, decubitus ulceration to sacrum Current %PO Negligible < 25% Estimated Nutritional Goals BEE in Kcals: Using Current wt Calories/Kcals/Kg 27-32 Kcals Calculated 2762-5091 Protein: Using Current wt Protein g/k-1.2 Protein Calculated 49-59 Fluid: ml 1323-1568ml (1ml/kcal) Nutritional Problem 1. Problem Problem altered nutrition related labs Etiology electrolytes/fluid imbalance Signs/Symptoms: cl 111, BUN 26 Intervention/Recommendation Comments 1. Continue with regular diet as ordered. Nurse to encourage oral intake and assist with meals. Recommend small frequent meals, adding snacks between meals. 2. Monitor PO intake, wt, labs and skin integrity 3. F/U as high risk in 2-3 days, 06/27-06/28 Expected Outcomes/Goals Expected Outcomes/Goals 1. PO intake to meet at least 75% of nutritional needs. 2. Wt stability, skin to remain intact, labs to approach WNL.
--- NOTE | 2018-06-27 14:06 | General Progress Note ---
Subjective - Review of Systems Service Date: 06/27/18 Subjective: sleeping, comfortable Objective - Results Result Diagrams: 06/27/18 06:15 06/27/18 06:15 Recent Labs: Laboratory Last Values WBC 9.1 Th/cmm (4.8-10.8) 06/27/18 06:15 RBC 3.09 Mil/cmm (3.80-5.20) L 06/27/18 06:15 Hgb 10.0 gm/dL (12-16) L 06/27/18 06:15 Hct 29.2 % (41.0-60) L 06/27/18 06:15 MCV 94.5 fl (81-100) 06/27/18 06:15 MCH 32.2 pg (27.0-31.0) H 06/27/18 06:15 MCHC Differential 34.1 pg (28.0-36.0) 06/27/18 06:15 RDW 12.9 % (11.5-20.0) 06/27/18 06:15 Plt Count 122 Th/cmm (150-400) L 06/27/18 06:15 MPV 9.0 fl 06/27/18 06:15 Neutrophils % 44.4 % (40.0-80.0) 06/27/18 06:15 Lymphocytes % 46.9 % (20.0-50.0) 06/27/18 06:15 Monocytes % 6.8 % (2.0-10.0) 06/27/18 06:15 Eosinophils % 1.7 % (0.0-5.0) 06/27/18 06:15 Basophils % 0.2 % (0.0-2.0) 06/27/18 06:15 Eos Smear Source URINE 06/26/18 18:10 Eos Smear Total Cells NONE SEEN (NONE SEEN) 06/26/18 18:10 Sodium 139 mEq/L (136-145) 06/27/18 06:15 Potassium 3.5 mEq/L (3.5-5.1) 06/27/18 06:15 Chloride 113 mEq/L (98-107) H 06/27/18 06:15 Carbon Dioxide 20.6 mEq/L (21.0-31.0) L 06/27/18 06:15 Anion Gap 8.9 (7.0-16.0) 06/27/18 06:15 BUN 24 mg/dL (7-25) 06/27/18 06:15 Creatinine 1.0 mg/dL (0.6-1.2) 06/27/18 06:15 Est GFR ( Amer) TNP 06/27/18 06:15 Est GFR (Non-Af Amer) TNP 06/27/18 06:15 BUN/Creatinine Ratio 24.0 06/27/18 06:15 Glucose 101 mg/dL (70-105) 06/27/18 06:15 Uric Acid 6.4 mg/dL (2.3-6.6) 06/26/18 06:58 Calcium 8.8 mg/dL (8.6-10.3) 06/27/18 06:15 Phosphorus 2.4 mg/dL (2.5-5.0) L 06/26/18 06:58 Magnesium 1.9 mg/dL (1.9-2.7) 06/26/18 06:58 Total Bilirubin 0.5 mg/dL (0.3-1.0) 06/25/18 11:40 AST 15 U/L (13-39) 06/25/18 11:40 ALT 11 U/L (7-52) 06/25/18 11:40 Alkaline Phosphatase 49 U/L (34-104) 06/25/18 11:40 Total Protein 6.0 gm/dL (6.0-8.3) 06/25/18 11:40 Albumin 3.2 gm/dL (3.7-5.3) L 06/25/18 11:40 Globulin 2.8 gm/dL 06/25/18 11:40 Albumin/Globulin Ratio 1.1 (1.0-1.8) 06/25/18 11:40 TSH 4.66 uIU/ml (0.34-5.60) 06/26/18 06:58 Ur Random Sodium 93 mmol/L 06/26/18 18:10 Urine Creatinine 29.0 mg/dl (28.0-217.0) 06/26/18 18:10 Microalb/Creat Ratio 210.2 mg/g creat (0.0-30.0) H 06/26/18 18:10 - Physical Exam Vitals and I&O: Vital Signs Temp 98.7 F 06/27/18 08:21 Pulse 78 06/27/18 08:21 Resp 17 06/27/18 08:21 BP 107/61 06/27/18 08:21 Pulse Ox 99 06/27/18 08:21 Intake & Output 06/26/18 06/27/18 06/27/18 18:59 06:59 18:59 Intake Total 1850 1060 Output Total 650 750 Balance 1200 310 Weight (lbs) 50.802 kg 50.802 kg Intake: Intake, IV Amount 1000 1000 D5-0.45NS 1,000 ml @ 100 1000 1000 mls/hr IV .Q10H [facility] Rx#: [id number] Oral 850 60 Output: Urine 650 750 Stool 0 Other: Weight Source Bedscale Bedscale Active Medications: Current Medications Acetaminophen (Tylenol) 650 mg PO Q4HR PRN PRN Reason: Mild Pain / Temp above 100 Stop: 08/24/18 12:58 Al Hydrox/Mg Hydrox/Simethicone (Maalox) 30 ml PO Q4HR PRN PRN Reason: GI DISTRESS Stop: 08/24/18 12:58 Ascorbic Acid (Vitamin C) 500 mg PO DAILY [facility] Stop: 08/25/18 08:59 Last Admin: 06/27/18 09:11 Dose: Not Given Cholecalciferol (Vitamin D3) 1,000 iu PO DAILY [facility] Stop: 08/25/18 08:59 Last Admin: 06/27/18 09:11 Dose: Not Given Heparin Sodium (Porcine) (Heparin) 5,000 units SUBQ Q12HR [facility] Stop: 08/24/18 20:59 Last Admin: 06/27/18 09:11 Dose: Not Given Dextrose/Sodium Chloride (D5-0.45ns) 1,000 mls @ 100 mls/hr IV .Q10H [facility] Stop: 08/24/18 01:59 Last Admin: 06/27/18 09:04 Dose: 100 mls/hr Magnesium Hydroxide (Milk Of Magnesia) 30 ml PO Q24H PRN PRN Reason: Constipation Stop: 08/24/18 12:58 Megestrol Acetate (Megace) 400 mg PO BID [facility] Stop: 08/24/18 16:59 Last Admin: 06/27/18 09:11 Dose: Not Given Miscellaneous (Vte Chemical Prophylaxis Screen/ Admission) 1 ea [facility] PRN PRN PRN Reason: PROTOCOL Stop: 08/24/18 09:46 Quetiapine Fumarate (Seroquel) 25 mg PO HS ENOC; Protocol Stop: 08/26/18 20:59 General: Alert, No acute distress HEENT: PERRLA, Mucous membr. moist/pink, Other (right forehead abrasion) Neck: Supple, +2 carotid pulse wo bruit Cardiovascular: Regular rate, Normal S1, Normal S2 Lungs: Clear to auscultation Abdomen: Bowel sounds, Soft Extremities: no Edema Neurological: Sensation intact Skin: no Rash Psych/Mental Status: Mood NL Assessment/Plan - Assessment Assessment: BENSON Dehydration S/P fall 2/2 cath, consider also psych meds, ortho hypotension Alzh Dementia DJD Sacral Ulcer NHL Peripheral Neuropathy - Plan Plan: Lab - Result Diagrams 06/25/18 11:40 06/26/18 06:58 Current Medications Acetaminophen (Tylenol) 650 mg PO Q4HR PRN PRN Reason: Mild Pain / Temp above 100 Stop: 08/24/18 12:58 Al Hydrox/Mg Hydrox/Simethicone (Maalox) 30 ml PO Q4HR PRN PRN Reason: GI DISTRESS Stop: 08/24/18 12:58 Ascorbic Acid (Vitamin C) 500 mg PO DAILY [facility] Stop: 08/25/18 08:59 Last Admin: 06/26/18 10:04 Dose: Not Given Cholecalciferol (Vitamin D3) 1,000 iu PO DAILY [facility] Stop: 08/25/18 08:59 Last Admin: 06/26/18 10:04 Dose: Not Given Heparin Sodium (Porcine) (Heparin) 5,000 units SUBQ Q12HR [facility] Stop: 08/24/18 20:59 Last Admin: 06/26/18 10:04 Dose: Not Given Dextrose/Sodium Chloride (D5-0.45ns) 1,000 mls @ 100 mls/hr IV .Q10H [facility] Stop: 08/24/18 01:59 Last Admin: 06/26/18 14:58 Dose: 100 mls/hr Magnesium Hydroxide (Milk Of Magnesia) 30 ml PO Q24H PRN PRN Reason: Constipation Stop: 08/24/18 12:58 Megestrol Acetate (Megace) 400 mg PO BID [facility] Stop: 08/24/18 16:59 Last Admin: 06/26/18 10:05 Dose: Not Given Miscellaneous (Vte Chemical Prophylaxis Screen/ Admission) 1 ea [facility] PRN PRN PRN Reason: PROTOCOL Stop: 08/24/18 09:46 Quetiapine Fumarate (Seroquel) 25 mg PO HS ENOC; Protocol Stop: 08/24/18 20:59 Lab - Result Diagrams 06/27/18 06:15 06/27/18 06:15 Kidney fnc stable w/ BUN/CR of 28/10 continue IVF encourage po intake Nutritional Asmnt/Malnutr-PDOC - Dietary Evaluation Malnutrition Findings (Please click <Entered> for more info): Nutritional Asmnt/Malnutrition Start: 06/25/18 13: 34 Text: Status: Complete Freq: Protocol: Document 06/25/18 13:34 BRO (Rec: 06/25/18 13:44 BRO [email or web address]) Nutritional Asmnt/Malnutrition Patient General Information Nutritional Screening High Risk Diagnosis dehydration, blunt head trama s/p fall Pertinent Medical Hx/Surgical Hx arthritis, dementia, myalgia, non-hodgkin's lymphoma, s/p UTI Subjective Information Pt seen resting in bed at time of visit. Per nurse note, pt refused breakfast and stated yelling after encouraging her to eat. Current Diet Order/ Nutrition Support regular Pertinent Medications vit C, Vit D3, D5-0.45ns, megace, seroquel Pertinent Labs 06/25 Cl 111, BUN 26, glucose 112, alb 3.2 Nutritional Hx/Data Height 1.65 m Height (Calculated Centimeters) 165.1 Current Weight (lbs) 48.988 kg Weight (Calculated Kilograms) 49.0 Weight (Calculated Grams) 50595.0 [place] Body Weight 125 Body Mass Index (BMI) 17.9 Weight Status Underweight GI Symptoms GI Symptoms None Last BM not indicated Difficult in: None Skin Integrity/Comment: bruise to left shoulder and left forehead, abrasion reddened to right forehead, decubitus ulceration to sacrum Current %PO Negligible < 25% Estimated Nutritional Goals BEE in Kcals: Using Current wt Calories/Kcals/Kg 27-32 Kcals Calculated 1886-1869 Protein: Using Current wt Protein g/k-1.2 Protein Calculated 49-59 Fluid: ml 1323-1568ml (1ml/kcal) Nutritional Problem 1. Problem Problem altered nutrition related labs Etiology electrolytes/fluid imbalance Signs/Symptoms: cl 111, BUN 26 Intervention/Recommendation Comments 1. Continue with regular diet as ordered. Nurse to encourage oral intake and assist with meals. Recommend small frequent meals, adding snacks between meals. 2. Monitor PO intake, wt, labs and skin integrity 3. F/U as high risk in 2-3 days, 06/27-06/28 Expected Outcomes/Goals Expected Outcomes/Goals 1. PO intake to meet at least 75% of nutritional needs. 2. Wt stability, skin to remain intact, labs to approach WNL.
--- NOTE | 2018-06-27 19:48 | Psychiatric Evaluation ---
DATE OF SERVICE: 06/27/2018 SUBJECTIVE: Staff was spoken to. The patient is interviewed. Mood is noted to be less irritable. Affect is appropriate. The patient is currently on 25 mg of the Seroquel at nighttime and has been able to tolerate the medications. No side effects to the medications are noted. ASSESSMENT: The patient's impulsivity is coming under control. PLAN: To continue the patient with the supportive therapy, encouraged the patient to verbalize the concerns rather than to act out and no major behavior and psychiatric problems are noted. However, the patient is still demented and has been having difficult time to cope with the stress and the patient is being closely monitored at this time for the falls and the patient is going to be continued on the Seroquel. JOB# [id number]
--- NOTE | 2018-06-28 03:30 | Infectious Disease Prog Note ---
Infectious Disease Subjective - Review of Systems Service Date: 06/28/18 Subjective: There is no new change. no fever. Infectious Disease Objective - Results Result Diagrams: 06/27/18 06:15 06/27/18 06:15 Recent Labs: Laboratory Last Values WBC 9.1 Th/cmm (4.8-10.8) 06/27/18 06:15 RBC 3.09 Mil/cmm (3.80-5.20) L 06/27/18 06:15 Hgb 10.0 gm/dL (12-16) L 06/27/18 06:15 Hct 29.2 % (41.0-60) L 06/27/18 06:15 MCV 94.5 fl (81-100) 06/27/18 06:15 MCH 32.2 pg (27.0-31.0) H 06/27/18 06:15 MCHC Differential 34.1 pg (28.0-36.0) 06/27/18 06:15 RDW 12.9 % (11.5-20.0) 06/27/18 06:15 Plt Count 122 Th/cmm (150-400) L 06/27/18 06:15 MPV 9.0 fl 06/27/18 06:15 Neutrophils % 44.4 % (40.0-80.0) 06/27/18 06:15 Lymphocytes % 46.9 % (20.0-50.0) 06/27/18 06:15 Monocytes % 6.8 % (2.0-10.0) 06/27/18 06:15 Eosinophils % 1.7 % (0.0-5.0) 06/27/18 06:15 Basophils % 0.2 % (0.0-2.0) 06/27/18 06:15 Eos Smear Source URINE 06/26/18 18:10 Eos Smear Total Cells NONE SEEN (NONE SEEN) 06/26/18 18:10 Sodium 139 mEq/L (136-145) 06/27/18 06:15 Potassium 3.5 mEq/L (3.5-5.1) 06/27/18 06:15 Chloride 113 mEq/L (98-107) H 06/27/18 06:15 Carbon Dioxide 20.6 mEq/L (21.0-31.0) L 06/27/18 06:15 Anion Gap 8.9 (7.0-16.0) 06/27/18 06:15 BUN 24 mg/dL (7-25) 06/27/18 06:15 Creatinine 1.0 mg/dL (0.6-1.2) 06/27/18 06:15 Est GFR ( Amer) TNP 06/27/18 06:15 Est GFR (Non-Af Amer) TNP 06/27/18 06:15 BUN/Creatinine Ratio 24.0 06/27/18 06:15 Glucose 101 mg/dL (70-105) 06/27/18 06:15 Uric Acid 6.4 mg/dL (2.3-6.6) 06/26/18 06:58 Calcium 8.8 mg/dL (8.6-10.3) 06/27/18 06:15 Phosphorus 2.4 mg/dL (2.5-5.0) L 06/26/18 06:58 Magnesium 1.9 mg/dL (1.9-2.7) 06/26/18 06:58 Total Bilirubin 0.5 mg/dL (0.3-1.0) 06/25/18 11:40 AST 15 U/L (13-39) 06/25/18 11:40 ALT 11 U/L (7-52) 06/25/18 11:40 Alkaline Phosphatase 49 U/L (34-104) 06/25/18 11:40 Total Protein 6.0 gm/dL (6.0-8.3) 06/25/18 11:40 Albumin 3.2 gm/dL (3.7-5.3) L 06/25/18 11:40 Globulin 2.8 gm/dL 06/25/18 11:40 Albumin/Globulin Ratio 1.1 (1.0-1.8) 06/25/18 11:40 TSH 4.66 uIU/ml (0.34-5.60) 06/26/18 06:58 Ur Random Sodium 93 mmol/L 06/26/18 18:10 Urine Creatinine 29.0 mg/dl (28.0-217.0) 06/26/18 18:10 Microalb/Creat Ratio 210.2 mg/g creat (0.0-30.0) H 06/26/18 18:10 - Physical Exam Vitals and I&O: Vital Signs Temp 98.8 F 06/27/18 15:43 Pulse 70 06/27/18 15:43 Resp 18 06/27/18 20:00 BP 109/60 06/27/18 15:43 Pulse Ox 99 06/27/18 15:43 Intake & Output 06/27/18 06/27/18 06/28/18 06:59 18:59 06:59 Intake Total 1060 1350 Output Total 750 1200 Balance 310 150 Weight (lbs) 50.802 kg 50.802 kg Intake: Intake, IV Amount 1000 D5-0.45NS 1,000 ml @ 100 1000 mls/hr IV .Q10H [facility] Rx#: [id number] Oral 60 1350 Output: Urine 750 1200 Other: # Bowel Movements 0 Weight Source Bedscale Bedscale Active Medications: Current Medications Acetaminophen (Tylenol) 650 mg PO Q4HR PRN PRN Reason: Mild Pain / Temp above 100 Stop: 08/24/18 12:58 Al Hydrox/Mg Hydrox/Simethicone (Maalox) 30 ml PO Q4HR PRN PRN Reason: GI DISTRESS Stop: 08/24/18 12:58 Ascorbic Acid (Vitamin C) 500 mg PO DAILY [facility] Stop: 08/25/18 08:59 Last Admin: 06/27/18 09:11 Dose: Not Given Cholecalciferol (Vitamin D3) 1,000 iu PO DAILY [facility] Stop: 08/25/18 08:59 Last Admin: 06/27/18 09:11 Dose: Not Given Heparin Sodium (Porcine) (Heparin) 5,000 units SUBQ Q12HR [facility] Stop: 08/24/18 20:59 Last Admin: 06/27/18 20:19 Dose: Not Given Dextrose/Sodium Chloride (D5-0.45ns) 1,000 mls @ 100 mls/hr IV .Q10H [facility] Stop: 08/24/18 01:59 Last Admin: 06/27/18 09:04 Dose: 100 mls/hr Magnesium Hydroxide (Milk Of Magnesia) 30 ml PO Q24H PRN PRN Reason: Constipation Stop: 08/24/18 12:58 Megestrol Acetate (Megace) 400 mg PO BID [facility] Stop: 08/24/18 16:59 Last Admin: 06/27/18 16:49 Dose: 400 mg Miscellaneous (Vte Chemical Prophylaxis Screen/ Admission) 1 ea [facility] PRN PRN PRN Reason: PROTOCOL Stop: 08/24/18 09:46 Quetiapine Fumarate (Seroquel) 25 mg PO HS ENOC; Protocol Stop: 08/26/18 20:59 Last Admin: 06/27/18 20:17 Dose: 25 mg General: no acute distress, well developed, well nourished HEENT: atraumatic, normocephalic, PERRLA Neck: supple, thyromegaly Cardiovascular: S1S2, no regular Lungs: clear to auscultation bilaterally, clear to percussion Abdomen: soft, no tender Extremities: no cyanosis, no clubbing, no edema Neurological: awake, alert, oriented Skin: intact Infectious Disease Assmt/Plan - Assessment Assessment: 1. Leukocytosis. Likely reactive. 2. Recurrent falls. No acute fracture. No brain injury. 3. Dementia. - Plan Plan: neurology follow up. Nutritional Asmnt/Malnutr-PDOC - Dietary Evaluation Malnutrition Findings (Please click <Entered> for more info): Nutritional Asmnt/Malnutrition Start: 06/25/18 13: 34 Text: Status: Complete Freq: Protocol: Document 06/25/18 13:34 LCHENG (Rec: 06/25/18 13:44 LCCHELSEAG [email or web address]) Nutritional Asmnt/Malnutrition Patient General Information Nutritional Screening High Risk Diagnosis dehydration, blunt head trama s/p fall Pertinent Medical Hx/Surgical Hx arthritis, dementia, myalgia, non-hodgkin's lymphoma, s/p UTI Subjective Information Pt seen resting in bed at time of visit. Per nurse note, pt refused breakfast and stated yelling after encouraging her to eat. Current Diet Order/ Nutrition Support regular Pertinent Medications vit C, Vit D3, D5-0.45ns, megace, seroquel Pertinent Labs 06/25 Cl 111, BUN 26, glucose 112, alb 3.2 Nutritional Hx/Data Height 1.65 m Height (Calculated Centimeters) 165.1 Current Weight (lbs) 48.988 kg Weight (Calculated Kilograms) 49.0 Weight (Calculated Grams) 73698.0 [place] Body Weight 125 Body Mass Index (BMI) 17.9 Weight Status Underweight GI Symptoms GI Symptoms None Last BM not indicated Difficult in: None Skin Integrity/Comment: bruise to left shoulder and left forehead, abrasion reddened to right forehead, decubitus ulceration to sacrum Current %PO Negligible < 25% Estimated Nutritional Goals BEE in Kcals: Using Current wt Calories/Kcals/Kg 27-32 Kcals Calculated 7900-1057 Protein: Using Current wt Protein g/k-1.2 Protein Calculated 49-59 Fluid: ml 1323-1568ml (1ml/kcal) Nutritional Problem 1. Problem Problem altered nutrition related labs Etiology electrolytes/fluid imbalance Signs/Symptoms: cl 111, BUN 26 Intervention/Recommendation Comments 1. Continue with regular diet as ordered. Nurse to encourage oral intake and assist with meals. Recommend small frequent meals, adding snacks between meals. 2. Monitor PO intake, wt, labs and skin integrity 3. F/U as high risk in 2-3 days, 06/27-06/28 Expected Outcomes/Goals Expected Outcomes/Goals 1. PO intake to meet at least 75% of nutritional needs. 2. Wt stability, skin to remain intact, labs to approach WNL.
[2018-06-28] MEDS: D5-0.45NS 1,000 ML IV SCH ×2 (03:49→16:57)
--- NOTE | 2018-06-28 08:36 | Diagnostic Imaging Report ---
Bilateral carotid Doppler ultrasound exam HISTORY: Syncope Sonographic sector images were obtained through the carotid bifurcation regions bilaterally. Associated Doppler data was obtained. The exam of the right side demonstrates generalized intimal thickening and mild multifocal atherosclerotic plaque. No significant narrowing or stenosis. Antegrade vertebral artery flow. Velocities and flow ratios are normal (ICC/CCA equals 0.95). The exam of the left side demonstrates generalized intimal thickening along with mild plaque within the carotid bulb region. No significant narrowing or stenosis. Antegrade vertebral artery flow. Velocities and flow ratios are normal (ICA/CCA equals 1.4). IMPRESSION: 1. Mild bilateral atherosclerotic changes that do not appear to be hemodynamically significant.
[2018-06-28] MEDS: Multivitamin w/ Minerals Tab PO SCH (09:45)
--- NOTE | 2018-06-28 11:42 | General Progress Note ---
Subjective - Review of Systems Service Date: 06/28/18 Subjective: sleeping, comfortable Objective - Results Result Diagrams: 06/27/18 06:15 06/27/18 06:15 Recent Labs: Laboratory Last Values WBC 9.1 Th/cmm (4.8-10.8) 06/27/18 06:15 RBC 3.09 Mil/cmm (3.80-5.20) L 06/27/18 06:15 Hgb 10.0 gm/dL (12-16) L 06/27/18 06:15 Hct 29.2 % (41.0-60) L 06/27/18 06:15 MCV 94.5 fl (81-100) 06/27/18 06:15 MCH 32.2 pg (27.0-31.0) H 06/27/18 06:15 MCHC Differential 34.1 pg (28.0-36.0) 06/27/18 06:15 RDW 12.9 % (11.5-20.0) 06/27/18 06:15 Plt Count 122 Th/cmm (150-400) L 06/27/18 06:15 MPV 9.0 fl 06/27/18 06:15 Neutrophils % 44.4 % (40.0-80.0) 06/27/18 06:15 Lymphocytes % 46.9 % (20.0-50.0) 06/27/18 06:15 Monocytes % 6.8 % (2.0-10.0) 06/27/18 06:15 Eosinophils % 1.7 % (0.0-5.0) 06/27/18 06:15 Basophils % 0.2 % (0.0-2.0) 06/27/18 06:15 Eos Smear Source URINE 06/26/18 18:10 Eos Smear Total Cells NONE SEEN (NONE SEEN) 06/26/18 18:10 Sodium 139 mEq/L (136-145) 06/27/18 06:15 Potassium 3.5 mEq/L (3.5-5.1) 06/27/18 06:15 Chloride 113 mEq/L (98-107) H 06/27/18 06:15 Carbon Dioxide 20.6 mEq/L (21.0-31.0) L 06/27/18 06:15 Anion Gap 8.9 (7.0-16.0) 06/27/18 06:15 BUN 24 mg/dL (7-25) 06/27/18 06:15 Creatinine 1.0 mg/dL (0.6-1.2) 06/27/18 06:15 Est GFR ( Amer) TNP 06/27/18 06:15 Est GFR (Non-Af Amer) TNP 06/27/18 06:15 BUN/Creatinine Ratio 24.0 06/27/18 06:15 Glucose 101 mg/dL (70-105) 06/27/18 06:15 Uric Acid 6.4 mg/dL (2.3-6.6) 06/26/18 06:58 Calcium 8.8 mg/dL (8.6-10.3) 06/27/18 06:15 Phosphorus 2.4 mg/dL (2.5-5.0) L 06/26/18 06:58 Magnesium 1.9 mg/dL (1.9-2.7) 06/26/18 06:58 Total Bilirubin 0.5 mg/dL (0.3-1.0) 06/25/18 11:40 AST 15 U/L (13-39) 06/25/18 11:40 ALT 11 U/L (7-52) 06/25/18 11:40 Alkaline Phosphatase 49 U/L (34-104) 06/25/18 11:40 Total Protein 6.0 gm/dL (6.0-8.3) 06/25/18 11:40 Albumin 3.2 gm/dL (3.7-5.3) L 06/25/18 11:40 Globulin 2.8 gm/dL 06/25/18 11:40 Albumin/Globulin Ratio 1.1 (1.0-1.8) 06/25/18 11:40 TSH 4.66 uIU/ml (0.34-5.60) 06/26/18 06:58 Ur Random Sodium 93 mmol/L 06/26/18 18:10 Urine Creatinine 29.0 mg/dl (28.0-217.0) 06/26/18 18:10 Microalb/Creat Ratio 210.2 mg/g creat (0.0-30.0) H 06/26/18 18:10 - Physical Exam Vitals and I&O: Vital Signs Temp 97.7 F 06/28/18 07:37 Pulse 73 06/28/18 07:37 Resp 18 06/28/18 07:37 BP 104/50 06/28/18 07:37 Pulse Ox 96 06/28/18 07:37 Intake & Output 06/27/18 06/28/18 06/28/18 18:59 06:59 18:59 Intake Total 1350 1000 Output Total 1200 2000 Balance 150 -1000 Weight (lbs) 50.802 kg 51.256 kg Intake: Intake, IV Amount 1000 D5-0.45NS 1,000 ml @ 100 1000 mls/hr IV .Q10H [facility] Rx#: [id number] Oral 1350 Output: Urine 1200 2000 Other: # Bowel Movements 0 Weight Source Bedscale Bedscale Active Medications: Current Medications Acetaminophen (Tylenol) 650 mg PO Q4HR PRN PRN Reason: Mild Pain / Temp above 100 Stop: 08/24/18 12:58 Al Hydrox/Mg Hydrox/Simethicone (Maalox) 30 ml PO Q4HR PRN PRN Reason: GI DISTRESS Stop: 08/24/18 12:58 Ascorbic Acid (Vitamin C) 500 mg PO DAILY [facility] Stop: 08/25/18 08:59 Last Admin: 06/28/18 09:45 Dose: Not Given Cholecalciferol (Vitamin D3) 1,000 iu PO DAILY [facility] Stop: 08/25/18 08:59 Last Admin: 06/28/18 09:45 Dose: Not Given Heparin Sodium (Porcine) (Heparin) 5,000 units SUBQ Q12HR [facility] Stop: 08/24/18 20:59 Last Admin: 06/28/18 09:45 Dose: Not Given Dextrose/Sodium Chloride (D5-0.45ns) 1,000 mls @ 100 mls/hr IV .Q10H [facility] Stop: 08/24/18 01:59 Last Admin: 06/28/18 03:49 Dose: 100 mls/hr Magnesium Hydroxide (Milk Of Magnesia) 30 ml PO Q24H PRN PRN Reason: Constipation Stop: 08/24/18 12:58 Megestrol Acetate (Megace) 400 mg PO BID [facility] Stop: 08/24/18 16:59 Last Admin: 06/28/18 09:45 Dose: Not Given Miscellaneous (Vte Chemical Prophylaxis Screen/ Admission) 1 ea [facility] PRN PRN PRN Reason: PROTOCOL Stop: 08/24/18 09:46 Quetiapine Fumarate (Seroquel) 25 mg PO HS ENOC; Protocol Stop: 08/26/18 20:59 Last Admin: 06/27/18 20:17 Dose: 25 mg General: Alert, No acute distress HEENT: PERRLA, Mucous membr. moist/pink, Other (right forehead abrasion) Neck: Supple, +2 carotid pulse wo bruit Cardiovascular: Regular rate, Normal S1, Normal S2 Lungs: Clear to auscultation Abdomen: Bowel sounds, Soft Extremities: no Edema Neurological: Sensation intact Skin: no Rash Psych/Mental Status: Mood NL Assessment/Plan - Assessment Assessment: BENSON Dehydration S/P fall 2/2 cath, consider also psych meds, ortho hypotension Alzh Dementia DJD Sacral Ulcer NHL Peripheral Neuropathy - Plan Plan: Lab - Result Diagrams 06/25/18 11:40 06/26/18 06:58 Current Medications Acetaminophen (Tylenol) 650 mg PO Q4HR PRN PRN Reason: Mild Pain / Temp above 100 Stop: 08/24/18 12:58 Al Hydrox/Mg Hydrox/Simethicone (Maalox) 30 ml PO Q4HR PRN PRN Reason: GI DISTRESS Stop: 08/24/18 12:58 Ascorbic Acid (Vitamin C) 500 mg PO DAILY [facility] Stop: 08/25/18 08:59 Last Admin: 06/26/18 10:04 Dose: Not Given Cholecalciferol (Vitamin D3) 1,000 iu PO DAILY [facility] Stop: 08/25/18 08:59 Last Admin: 06/26/18 10:04 Dose: Not Given Heparin Sodium (Porcine) (Heparin) 5,000 units SUBQ Q12HR [facility] Stop: 08/24/18 20:59 Last Admin: 06/26/18 10:04 Dose: Not Given Dextrose/Sodium Chloride (D5-0.45ns) 1,000 mls @ 100 mls/hr IV .Q10H [facility] Stop: 08/24/18 01:59 Last Admin: 06/26/18 14:58 Dose: 100 mls/hr Magnesium Hydroxide (Milk Of Magnesia) 30 ml PO Q24H PRN PRN Reason: Constipation Stop: 08/24/18 12:58 Megestrol Acetate (Megace) 400 mg PO BID [facility] Stop: 08/24/18 16:59 Last Admin: 06/26/18 10:05 Dose: Not Given Miscellaneous (Vte Chemical Prophylaxis Screen/ Admission) 1 ea [facility] PRN PRN PRN Reason: PROTOCOL Stop: 08/24/18 09:46 Quetiapine Fumarate (Seroquel) 25 mg PO HS ENOC; Protocol Stop: 08/24/18 20:5 Lab - Result Diagrams 06/27/18 06:15 06/27/18 06:15 Kidney fnc stable w/ BUN/CR of 28/10 continue IVF encourage po intake Nutritional Asmnt/Malnutr-PDOC - Dietary Evaluation Malnutrition Findings (Please click <Entered> for more info): Nutritional Asmnt/Malnutrition Start: 06/25/18 13: 34 Text: Status: Complete Freq: Protocol: Document 06/25/18 13:34 KIKEG (Rec: 06/25/18 13:44 LCCHELSEAG [email or web address]) Nutritional Asmnt/Malnutrition Patient General Information Nutritional Screening High Risk Diagnosis dehydration, blunt head trama s/p fall Pertinent Medical Hx/Surgical Hx arthritis, dementia, myalgia, non-hodgkin's lymphoma, s/p UTI Subjective Information Pt seen resting in bed at time of visit. Per nurse note, pt refused breakfast and stated yelling after encouraging her to eat. Current Diet Order/ Nutrition Support regular Pertinent Medications vit C, Vit D3, D5-0.45ns, megace, seroquel Pertinent Labs 06/25 Cl 111, BUN 26, glucose 112, alb 3.2 Nutritional Hx/Data Height 1.65 m Height (Calculated Centimeters) 165.1 Current Weight (lbs) 48.988 kg Weight (Calculated Kilograms) 49.0 Weight (Calculated Grams) 53606.0 [place] Body Weight 125 Body Mass Index (BMI) 17.9 Weight Status Underweight GI Symptoms GI Symptoms None Last BM not indicated Difficult in: None Skin Integrity/Comment: bruise to left shoulder and left forehead, abrasion reddened to right forehead, decubitus ulceration to sacrum Current %PO Negligible < 25% Estimated Nutritional Goals BEE in Kcals: Using Current wt Calories/Kcals/Kg 27-32 Kcals Calculated 4480-3329 Protein: Using Current wt Protein g/k-1.2 Protein Calculated 49-59 Fluid: ml 1323-1568ml (1ml/kcal) Nutritional Problem 1. Problem Problem altered nutrition related labs Etiology electrolytes/fluid imbalance Signs/Symptoms: cl 111, BUN 26 Intervention/Recommendation Comments 1. Continue with regular diet as ordered. Nurse to encourage oral intake and assist with meals. Recommend small frequent meals, adding snacks between meals. 2. Monitor PO intake, wt, labs and skin integrity 3. F/U as high risk in 2-3 days, 06/27-06/28 Expected Outcomes/Goals Expected Outcomes/Goals 1. PO intake to meet at least 75% of nutritional needs. 2. Wt stability, skin to remain intact, labs to approach WNL.
[2018-06-28 12:55] LABS: % BASOPHILS 0.5 % (0.0-2.0); % EOSINOPHILS 1.2 % (0.0-5.0); % LYMPHOCYTES 42.5 % (20.0-50.0); % NEUTROPHILS 49.8 % (40.0-80.0); EOSINOPHILE ABSOLUTE 0.1 Th/cmm (0.1-0.4); HEMATOCRIT 32.1 % (41.0-60); HEMOGLOBIN 10.5 gm/dL (12-16); LYMPHOCYTE ABSOLUTE 4.2 Th/cmm (1.5-3.0); MEAN CELL VOLUME 94.9 fl (81-100); MEAN CORPUSCULAR HGB CONC 32.7 pg (28.0-36.0); MEAN PLATELET VOLUME 8.4 fl; MONOCYTE ABSOLUTE 0.6 Th/cmm (0.3-1.0); NEUTROPHILE ABSOLUTE 5.1 Th/cmm (1.8-8.0); PLATELET COUNT 147 Th/cmm (150-400); RED BLOOD COUNT 3.38 Mil/cmm (3.80-5.20); RED CELL DISTRIBUTION WIDTH 13.2 % (11.5-20.0)
[2018-06-28 13:10] LABS: ANION GAP 9.7 (7.0-16.0); BUN - UREA NITROGEN 20 mg/dL (7-25); CALCIUM SERUM 9.2 mg/dL (8.6-10.3); CARBON DIOXIDE 21.5 mEq/L (21.0-31.0); CHLORIDE 114 mEq/L (98-107); GLUCOSE 103 mg/dL (70-105); POTASSIUM SERUM 4.2 mEq/L (3.5-5.1); SODIUM SERUM 141 mEq/L (136-145)
--- NOTE | 2018-06-29 14:40 | Cardiology ---
06/28/[address] Partida. M-MODE ECHOCARDIOGRAM: Mitral valve, anterior leaflet of mitral valve shows normal excursion, EF velocity. Posterior leaflet of mitral valve shows normal excursion. Left ventricular posterior wall showed normal thickness, excursion. Interventricular septum showed normal thickness, excursion. Ejection fraction 73%. Left atrium normal. Aortic root shows normal dimension, normal excursion of aortic leaflets. CONCLUSION: Normal M-Mode echo, ejection fraction 73%. 2D ECHO: Long axis view showed normal sized left ventricle with normal wall motion, mitral valve shows normal excursion. Left atrium normal. Aortic root shows normal dimension, normal excursion of aortic leaflets. Short axis view of mitral valve normal. Short axis view of aortic valve normal. Apical four chamber view showed normal sized left ventricle, left atrium, right ventricle, right atrium, tricuspid and mitral valve. Ejection fraction 73%. CONCLUSION: Normal 2D echo, ejection fraction 73%. Doppler study shows trace mitral regurgitation, mild aortic regurgitation, mild tricuspid regurgitation, right ventricular systolic pressure 35 mmHg. CONCLUSION: Trace mitral regurgitation, mild aortic regurgitation, mild tricuspid regurgitation, ejection fraction 73%. JOB# [id number]
--- NOTE | 2018-06-29 17:49 | Consultation ---
DATE OF CONSULTATION: 06/28/2018 HISTORY OF PRESENT ILLNESS: The patient is 78-year-old. The patient transferred from group home. Apparently, the patient fell off the wheelchair hitting her forehead. She has been very unsteady and with recurrent falls. The patient has injury of the left shoulder. She cannot move the left arm very much. The patient has a Han catheter. The patient apparently with underlying dementia, how severe is unclear. PAST MEDICAL HISTORY: 1. Arthritis with non-Hodgkin's lymphoma. 2. Previous UTI. 3. Dementia. 4. Left shoulder injury with weakness of left arm. SOCIAL HISTORY: Does not smoke or drink in a group home. SURGERIES: Unknown. REVIEW OF SYSTEMS: Twelve point negative except for above. No seizures here. The patient is unsteady. MEDICATIONS: As per reconciliation. PHYSICAL EXAMINATION: VITAL SIGNS: Temperature 98.2, blood pressure 110/55, pulse is around 79. NECK: Supple, no bruits. HEART: Sounds S1, S2. LUNGS: Clear. NEUROLOGIC: The patient is awake, alert. The patient will actually answer questions. She gives me her name. She could not tell me her age. She did not know what day, what month, what year, but she is quite coherent. Able to name simple objects such as pen and glasses. CRANIAL: Pupils react to light. Full eye movement. No nystagmus. MOTOR: She complains of pain in the left arm shoulder area. 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 Legs, she will lift them both up. Reflexes 1, difficult to get in the lower extremity. INVESTIGATIONS: CT scan of the head: No cerebral atrophy. No abnormalities noted otherwise acutely. Carotid Doppler: No significant stenosis. LABORATORY DATA: WBC 9, INR is 10.0, hemoglobin 10.5, platelets normal. BUN is 20, creatinine 1.0. TSH 4.66. ASSESSMENT: 1. Ataxia. 2. Recurrent falls. 3. Closed head injury. No intracranial bleed. 4. History of dementia. 5. Non-Hodgkin lymphoma. 6. Arthritis. PLAN: Neurologically at this time, no further intervention. The patient should follow up outpatient with Neurology. JOB# [id number]
--- NOTE | 2018-07-05 23:46 | Discharge Summary ---
DATE OF DISCHARGE: 06/28/2018 This patient was admitted because of blunt head trauma, status post fall, dehydration, anemia, myalgia, history of a non-Hodgkin lymphoma. The patient was treated. Neurological tests were done and neurologist follow the patient. The patient had a CAT scan, which showed cerebral atrophy, no acute changes. The patient eventually improved. The patient was in stable condition on 06/28/2018 with a diagnoses of status post head trauma, dehydration improved, anemia improved, history of non-Hodgkin lymphoma. The patient was sent back to [facility] where I will follow the patient. CONDITION AT TIME OF DISCHARGE: Stable. JOB# [id number]
== END 2018-06-28 23:25 | DRG 683 ==
LOC: ER 23:08 → MSI 06-25 01:00
PROVIDERS: ADMIT Internal Medicine; ATTEND Internal Medicine
DX: N17.9 Acute kidney failure, unspecified (principal); C85.90 Non-Hodgkin lymphoma, unspecified, unspecified site; S00.83XA Contusion of other part of head, initial encounter; D72.829 Elevated white blood cell count, unspecified; M19.90 Unspecified osteoarthritis, unspecified site; E86.0 Dehydration; I95.1 Orthostatic hypotension; M79.7 Fibromyalgia; W05.0XXA Fall from non-moving wheelchair, initial encounter; Y93.89 Activity, other specified; Y92.89 Other specified places as the place of occurrence of the external cause; Y99.8 Other external cause status; G30.9 Alzheimer's disease, unspecified; F02.80 Dementia in other diseases classified elsewhere, unspecified severity, without behavioral disturbance, psychotic disturbance, mood disturbance, and anxiety; F32.9 Major depressive disorder, single episode, unspecified; G62.9 Polyneuropathy, unspecified; R27.0 Ataxia, unspecified; L89.152 Pressure ulcer of sacral region, stage 2
CPT/HCPCS: 36415-UA; 70450-TC; 80048-TC; 80053-TC; 81015-TC; 82043-90; 82570-TC; 83735-TC; 84100-TC; 84300-TC; 84443-TC; 84550-TC; 85025-TC; 93880-TC; J1644; J2060; Z7610